=== PATIENT | male | born 1970 | race Caucasian/White ===

== ENCOUNTER 2019-06-10 19:40 | Emergency (ER) | payer MEDICARE, OTHER ==
[~2019-06-10] VITALS: Ht 172.7 cm; Wt 68.0 kg
[2019-06-10 19:47] VITALS: BP 125/74
--- NOTE | 2019-06-10 19:47 | NUR ---
Pt placed in pysch room with safety sweeper tool being performed to identify all things to be removed from room. RN present to triage.
--- NOTE | 2019-06-10 19:55 | ED Psychosocial ---
General Stated Complaint: SUICIDAL, HEARING VOICES Source: patient, RN notes reviewed Exam Limitations: no limitations History of Present Illness Date Seen by Provider: Jun 10, 2019 Time Seen by Provider: 19:54 Past Hcbjuqc-Nskrjq-Fyxnzh Hx Patient Social History Recent Foreign Travel: No Contact w/Someone Who Travel: No Physical Exam Capillary Refill : Height, Weight, BMI Height: '" Weight: lbs. oz. kg; BMI Method: Departure Departure-Patient Inst. Referrals: NO,LOCAL PHYSICIAN (PCP) Primary Care Physician GAUDENCIO CHOU DO Jun 10, 2019 19:54
[2019-06-10 20:14] LABS: BILIRUBIN,URINE NEGATIVE (NEGATIVE); CLARITY,URINE CLEAR; COLOR,URINE YELLOW; GLUCOSE, URINE (UA) NEGATIVE (NEGATIVE); KETONES,URINE NEGATIVE (NEGATIVE); LEUKOCYTE ESTERASE ,URINE NEGATIVE (NEGATIVE); NITRITE,URINE NEGATIVE (NEGATIVE); PROTEIN,URINE NEGATIVE (NEGATIVE); SQUAMOUS EPITHELIAL CELL,UR RARE /HPF; UROBILINOGEN,URINE 0.2 MG/DL (NORMAL)
--- NOTE | 2019-06-10 20:14 | NUR ---
Pt's personal belongings removed from all pockets by patient then pt's clothing removed and gown placed on pt.
[2019-06-10 20:26] LABS: BASOPHILS % (AUTO) 0 % (0-10); EOSINOPHILS % (AUTO) 6 % (0-10); HEMATOCRIT 41 % (40-54); HEMOGLOBIN 13.6 G/DL (13.3-17.7); LYMPHOCYTES % (AUTO) 24 % (12-44); MEAN CORPUSCULAR HEMOGLOBIN 29 PG (25-34); MEAN CORPUSCULAR HGB CONC 33 G/DL (32-36); MEAN CORPUSCULAR VOLUME 88 FL (80-99); MEAN PLATELET VOLUME 10.3 FL (7.4-10.4); MONOCYTES % (AUTO) 7 % (0-12); NEUTROPHILS # (AUTO) 4.4 X 10^3 (1.8-7.8); NEUTROPHILS % (AUTO) 63 % (42-75); PLATELET COUNT 258 10^3/uL (130-400); RED CELL DISTRIBUTION WIDTH 15.7 % (10.0-14.5)
[2019-06-10 20:27] LABS: EOSINOPHILS # (AUTO) 0.4 10^3/uL (0.0-0.3); LYMPHOCYTES # (AUTO) 1.7 X 10^3 (1.0-4.0); MONOCYTES # (AUTO) 0.5 X 10^3 (0.0-1.0)
[2019-06-10 20:29] LABS: AMPHETAMINE SCREEN, URINE POSITIVE (NEGATIVE); BENZODIAZEPINES SCREEN URINE NEGATIVE (NEGATIVE); CANNABINOID SCREEN, URINE POSITIVE (NEGATIVE); COCAINE SCREEN URINE NEGATIVE (NEGATIVE); METHAMPHETAMINE SCREEN URINE S POSITIVE (NEGATIVE)
[2019-06-10 20:30] LABS: BARBITURATE SCREEN URINE NEGATIVE (NEGATIVE); METHADONE STAT NEGATIVE (NEGATIVE); OPIATE SCREEN URINE NEGATIVE (NEGATIVE); OXYCODONE STAT NEGATIVE (NEGATIVE); PROPOXYPHENE STAT NEGATIVE (NEGATIVE); TRICYCLIC ANTIDEPRESSANTS SCRE NEGATIVE (NEGATIVE)
[2019-06-10 20:46] LABS: SODIUM 137 MMOL/L (135-145)
[2019-06-10 20:47] LABS: ACETAMINOPHEN < 10 UG/ML (10-30); ALANINE AMINOTRANSFERASE 179 U/L (0-55); ALBUMIN 3.9 GM/DL (3.2-4.5); ALKALINE PHOSPHATASE 111 U/L (40-136); BILIRUBIN,TOTAL 0.4 MG/DL (0.1-1.0); BUN/CREATININE RATIO 16; CARBON DIOXIDE 22 MMOL/L (21-32); CHLORIDE 98 MMOL/L (98-107); CREATININE SERUM 0.69 MG/DL (0.60-1.30); GFR ESTIMATED > 60; GLUCOSE 92 MG/DL (70-105); MAGNESIUM 1.6 MG/DL (1.8-2.4); POTASSIUM 3.4 MMOL/L (3.6-5.0); SALICYLATE < 5.0 MG/DL (5.0-20.0)
--- NOTE | 2019-06-10 20:55 | NUR ---
Pt is medically cleared per Dr Mahoney and patient may be screened per [facility].
--- NOTE | 2019-06-10 21:02 | NUR ---
[facility] with have a screener return call to this RN.
--- NOTE | 2019-06-10 21:14 | NUR ---
Cyndi @ [facility] returned call and we are joining via Laptop with secure code to start pt screening.
--- NOTE | 2019-06-10 21:21 | NUR ---
Laptop computer provided to pt and purpose of this telecom screening discussed.
--- NOTE | 2019-06-10 21:55 | NUR ---
Sonam springer in [facility] - 06/11/19 at 0632 by CKOPPA Pt medically cleared per Dr Mahoney, call to after hour [facility] to request screening.
--- NOTE | 2019-06-10 22:30 | NUR ---
Pt left AMA with Dr de la garza. Pt refused to sign the AMA form. Pt's Mental Health contract has not arrived on fax yet from [facility].
--- NOTE | 2019-06-10 22:56 | NUR ---
Notified the [facility] of pt departing before his contract arrived. Pt left AMA with aware. Pt refused to sign the AMA stating, "No, no that is what the Yefri Mancia tried to get me to sign?"
--- NOTE | 2019-06-11 05:15 | NUR ---
Receiving copy of Mental Health screening exam from [facility].
== END 2019-06-10 22:30 | disposition left against medical advice (07) ==
LOC: ER FS 19:41
DX: R45.851 Suicidal ideations (principal); R44.3 Hallucinations, unspecified
CPT/HCPCS: 36415; 80053; 80306; 80320; 80329; 81000; 83735; 85025; 93005

== ENCOUNTER 2019-06-11 18:54 | Emergency (ER) | payer MEDICARE ==
[~2019-06-11] VITALS: Ht 175.3 cm; Wt 59.0 kg
--- OUTSIDE RECORDS SUMMARY | 2019-06-11 18:59 | XMS REPORT | Referral Summary ---
Author Author [facility] Organization [facility] Address Unknown Phone Unavailable Care Team Providers Care Street Light Cleaner Name Role Phone [facility] PCP Unavailable Encounter VC THONY [id number] Date(s): 06/02/19 - 06/02/19 [facility] [address] [place] [address] Encounter Diagnosis Methamphetamine intoxication (Discharge Diagnosis) - 06/02/19 Tachycardia (Discharge Diagnosis) - 06/02/19 Methamphetamine intoxication (Discharge Diagnosis) - 06/02/19 Methamphetamine abuse (Discharge Diagnosis) - 06/02/19 Methamphetamine abuse (Discharge Diagnosis) - 06/02/19 Discharge Disposition: 01-Home or Self Care Attending Physician: Landon Gonzalez MD Admitting Physician: Landon Gonzalez MD Vital Signs Most recent to 1 oldest [Reference Range]: Temperature Oral 36.8 degC [35.8-37.3 degC] (06/02/19 2:40 AM) Peripheral Pulse 119 bpm Rate [60-100 bpm] *HI* (06/02/19 2:40 AM) Respiratory Rate 20 br/min [14-20 br/min] (06/02/19 2:40 AM) Blood Pressure 117/76 mmHg [90-140/60-90 mmHg] (06/02/19 2:40 AM) SpO2 97 % (06/02/19 2:40 AM) Problem List Condition Effective Dates Status Health Status Informant Acute Active pain(Confirmed) Anxiety(Confirmed) Active patient At risk for Active falls(Confirmed)1 At risk of pressure Active sore(Confirmed) Beta-hemolytic Active Streptococcus, group A(Confirmed)2 Impaired skin Active integrity(Confirmed) 3 Methamphetamine Active patient use(Confirmed) Schizophrenia(Confir Active med) Tobacco Active patient user(Confirmed) 1This problem was added by Discern Expert. 2Strep Grp A in Drainage from Arm R collected 05/03/19 11:45:00 CDT 3Problem added automatically by system based on initiation of Impaired Skin Integrity Plan of Care Allergies, Adverse Reactions, Alerts No Known Allergies Medications busPIRone Oral, BID, 0 Refill(s) Start Date: 06/02/19 Status: Ordered hydrOXYzine hydrochloride 25 mg oral tablet 25 mg 1 tabs, Oral, TID, as needed for anxiety, # 40 tabs, 0 Refill(s) Start Date: 05/02/19 Status: Ordered ibuprofen 200 mg oral capsule 800 mg 4 caps, Oral, BID, as needed for pain, 0 Refill(s) Start Date: 04/10/19 Status: Ordered Lexapro 10 mg oral tablet 10 mg 1 tabs, Oral, Daily, # 30 tabs, 0 Refill(s), [facility], 1 tabs Oral Daily Start Date: 04/15/19 Status: Ordered OLANZapine 10 mg oral tablet 10 mg 1 tabs, Oral, BID, # 30 tabs, 0 Refill(s) Start Date: 05/02/19 Status: Ordered traZODone 50 mg oral tablet 50 mg 1 tabs, Oral, Bedtime (once a day), # 30 tabs, 0 Refill(s), Pharmacy: [facility] [id number], 1 tabs Oral Bedtime (once a day) Start Date: 04/15/19 Status: Ordered Results Most recent to 1 oldest [Reference Range]: U Amphetamine Scrn Positive *ABN* (06/02/19 3:36 AM) U Benzodiazepine Negative Scrn (06/02/19 3:36 AM) U PCP Scrn Negative (06/02/19 3:36 AM) U Cocaine Scrn Negative (06/02/19 3:36 AM) U Cannab Scrn Negative (06/02/19 3:36 AM) U Barbiturate Scrn - 1 (06/02/19 3:36 AM) U Opiate Scrn Negative (06/02/19 3:36 AM) Tricyclics Not Detected 2 (06/02/19 3:36 AM) Methadone Lvl Negative (06/02/19 3:36 AM) 1Result Comment: Due to a shortage of Barbiturate reagent supply, we cannot perform this component of the UDS. When clinically necessary, please send a downtime requisition requesting the Barbiturate by an alternate method. 2Result Comment: Cut-off concentrations: Amphetamines: 1000 ng/mL Cocaine: 300 ng/mL Cannabinoid: 50 ng/mL Opiate: 300 ng/mL Phencyclidine (PCP): 25 ng/mL Benzodiazepine: 200 ng/mL Barbiturate: 200 ng/mL Methadone: 300 ng/mL Tricyclic: 300 ng/mL The urine drug screen assays are qualitative screens. A more specific GC/MS method must be performed to obtain a confirmed analytical result. Unconfirmed screening results must not be used for non-medical purposes(e.g. employment or legal testing) Immunizations Not Given Vaccine Date Status Refusal Reason influenza virus vaccine, inactivated 10/17/18 Not Given Patient Refuses Procedures Procedure Date Related Diagnosis Body Site Status Appendectomy Completed Procedure on ankle1 Completed 1left Social History Social History Type Response Smoking Status 5-9 cigarettes (between 1/4 to 1/2 pack)/day in last 30 days entered on: 10/17/18 Assessment and Plan No data available for this section
--- OUTSIDE RECORDS SUMMARY | 2019-06-11 18:59 | XMS REPORT | Referral Summary ---
Author Author [facility] Organization [facility] Address Unknown Phone Unavailable Care Team Providers Care Core Driller Helper Name Role Phone [facility] PCP Unavailable Encounter VC THONY [id number] Date(s): 06/07/19 - 06/07/19 [facility] [address] [place] [address]- [phone] Encounter Diagnosis Methamphetamine abuse (Discharge Diagnosis) - 06/07/19 Depression (Discharge Diagnosis) - 06/07/19 Discharge Disposition: 01-Home or Self Care Attending Physician: Erick Spencer DO Admitting Physician: Erick Spencer DO Vital Signs Most recent to 1 oldest [Reference Range]: Temperature Tympanic 37.3 degC [35.8-38.1 degC] (06/07/19 8:24 AM) Peripheral Pulse 139 bpm Rate [60-100 bpm] *HI* (06/07/19 8:24 AM) Heart Rate Monitored 99 bpm [60-100 bpm] (06/07/19 2:30 PM) Respiratory Rate 46 br/min [14-20 br/min] *HI* (06/07/19 2:30 PM) Blood Pressure 134/91 mmHg [90-140/60-90 mmHg] (06/07/19 10:00 AM) Mean Arterial 109 mmHg Pressure, Cuff (06/07/19 10:00 AM) SpO2 98 % (06/07/19 2:30 PM) Problem List Condition Effective Dates Status Health Status Informant Acute Active pain(Confirmed) Anxiety(Confirmed) Active patient At risk for Active falls(Confirmed)1 At risk of pressure Active sore(Confirmed) Beta-hemolytic Active Streptococcus, group A(Confirmed)2 Impaired skin Active integrity(Confirmed) 3 Methamphetamine Active patient use(Confirmed) Schizophrenia(Confir Active med) Tobacco Active patient user(Confirmed) 1This problem was added by Discern Expert. 2Strep Grp A in Drainage from Arm R collected 06/28/19 11:45:00 CDT 3Problem added automatically by system [...] Daily, # 30 tabs, 0 Refill(s), Pharmacy: [facility] [address], 1 tabs Oral Daily Start Date: 04/15/19 Status: Ordered OLANZapine 10 mg oral tablet 10 mg 1 tabs, Oral, BID, # 30 tabs, 0 Refill(s) Start Date: 05/02/19 Status: Ordered traZODone 50 mg oral tablet 50 mg 1 tabs, Oral, Bedtime (once a day), # 30 tabs, 0 Refill(s), Pharmacy: [facility] [address], 1 tabs Oral Bedtime (once a day) Start Date: 04/15/19 Status: Ordered Results Most recent to 1 oldest [Reference Range]: WBC [4.8-10.8 12.4 10*3/uL 10*3/uL] *HI* (06/07/19 8:21 AM) RBC [4.60-6.20] 4.64 (06/07/19 8:21 AM) BUN [4-20 mg/dL] 14 mg/dL (06/07/19 8:21 AM) Total CK [49-397 514 U/L U/L] *HI* (06/07/19 8:21 AM) U Amphetamine Scrn Positive 1 *ABN* (06/07/19 9:00 AM) UA Color Yellow (06/07/19 9:00 AM) UA WBC [0-4] 0-2 (06/07/19 9:00 AM) Type Clean Catch (06/07/19 9:00 AM) Troponin [<0.06 <0.05 ng/mL ng/mL] (06/07/19 8:21 AM) Glucose Lvl [70-100 141 mg/dL mg/dL] *HI* (06/07/19 8:21 AM) Potassium Lvl 3.9 mEq/L [3.6-5.1 mEq/L] (06/07/19 8:21 AM) U Benzodiazepine Negative Scrn (06/07/19 9:00 AM) MCV [82.0-99.0 fL] 87.3 fL (06/07/19 8:21 AM) UA Urobilinogen Negative [<1.0] (06/07/19 9:00 AM) UA Hyal Cast [0-3] 1-3 (06/07/19 9:00 AM) UA Bili [Negative] Negative (06/07/19 9:00 AM) UA Ketones Negative [Negative] (06/07/19 9:00 AM) AST [15-41 U/L] 121 U/L *HI* (06/07/19 8:21 AM) ALT [17-63 U/L] 159 U/L *HI* (06/07/19 8:21 AM) MCHC [32.0-36.0 32.8 gm/dL gm/dL] (06/07/19 8:21 AM) Sodium Lvl [136-144 141 mEq/L mEq/L] (06/07/19 8:21 AM) UA RBC [0-2] 0-2 (06/07/19 9:00 AM) UA Leuk Est Negative [Negative] (06/07/19 9:00 AM) U PCP Scrn Negative (06/07/19 9:00 AM) UA Nitrite Negative [Negative] (06/07/19 9:00 AM) UA Glucose Negative [Negative] (06/07/19 9:00 AM) Hct [42.0-52.0 %] 40.5 % *LOW* (06/07/19 8:21 AM) UA Bacteria [None None Seen Seen-Rare] (06/07/19 9:00 AM) U Cocaine Scrn Negative (06/07/19 9:00 AM) Calcium Lvl 9.7 mg/dL [8.6-10.0 mg/dL] (06/07/19 8:21 AM) Albumin Lvl [3.5-4.8 4.5 gm/dL gm/dL] (06/07/19 8:21 AM) Total Protein 7.6 gm/dL [6.1-7.9 gm/dL] (06/07/19 8:21 AM) UA Protein Pos 1+ [Negative] *ABN* (06/07/19 9:00 AM) MCH [27.0-32.0 pg] 28.7 pg (06/07/19 8:21 AM) U Cannab Scrn Positive *ABN* (06/07/19 9:00 AM) Bili Total [0.2-1.2 0.8 mg/dL 2 mg/dL] (06/07/19 8: AM) Hgb [14.0-18.0 13.3 gm/dL gm/dL] *LOW* (06/07/19 8: AM) Alk Phos [26-104 90 U/L U/L] (06/07/19 8:21 AM) UA Blood [Negative] Negative (06/07/19 9:00 AM) MPV [9.4-12.3 fL] 10.8 fL (06/07/19 8:21 AM) UA Mucous Present (06/07/19 9:00 AM) UA Spec Grav 1.020 [1.003-1.030] (06/07/19 9:00 AM) Platelet [150-400 236 10*3/uL 10*3/uL] (06/07/19 8:21 AM) Chloride [99-109 105 mEq/L mEq/L] (06/07/19 8:21 AM) CO2 [22-32 mEq/L] 20 mEq/L *LOW* (06/07/19 8: AM) AGAP [3-20 mEq/L] 16 mEq/L (06/07/19 8:21 AM) U Barbiturate Scrn - 3 (06/07/19 9:00 AM) RDW [11.5-14.5 %] 15.8 % *HI* (06/07/19 8:21 AM) UA pH [5.0-8.0] 5.0 (06/07/19 9:00 AM) U Opiate Scrn Negative (06/07/19 9:00 AM) UA Appear Clear (06/07/19 9:00 AM) eGFR [>60 mL/min] >60 mL/min 4 (06/07/19 8:21 AM) Globulin [1.9-4.3 3.1 gm/dL gm/dL] (06/07/19 8:21 AM) Epithelial Cells None Seen [0-5] (06/07/19 9:00 AM) Tricyclics Negative 5 (06/07/19 9:00 AM) Creatinine Lvl 1.14 mg/dL [0.64-1.27 mg/dL] (06/07/19 8:21 AM) Sodium Venous 141 mEq/L [136-144 mEq/L] (06/07/19 8:30 AM) Potassium Venous 3.8 mEq/L 6 [3.6-5.1 mEq/L] (06/07/19 8:30 AM) Calcium Ionized 1.16 mmol/L Venous [1.19-1.41 *LOW* mmol/L] (06/07/19 8:30 AM) Total CO2 Venous 22 mEq/L [25-29 mEq/L] *LOW* (06/07/19 8:30 AM) HGB Venous NPT 15.0 gm/dL [14.0-18.0 gm/dL] (06/07/19 8:30 AM) HCT Venous 44.0 % [42.0-52.0 %] (06/07/19 8:30 AM) Glucose Venous 146 mg/dL [70-100 mg/dL] *HI* (06/07/19 8:30 AM) BUN Venous [4-20] 16 (06/07/19 8:30 AM) Creatinine Venous 1.0 mg/dL [0.7-1.2 mg/dL] (06/07/19 8:30 AM) Venous CL [99-109 106 mEq/L mEq/L] (06/07/19 8:30 AM) Anion Gap, Alverto [3-20 13 mEq/L mEq/L] (06/07/19 8:30 AM) Methadone Lvl Negative (06/07/19 9:00 AM) 1Result Comment: Samples with a Methylenedioxyamphetamine (MDA) concentration of 2,500 ng/mL may generate a negative result. However, samples with a Phenylephrine concentration of 500,000 ng/mL may generate a positive result. 2Result Comment: Naproxen, specifically the metabolite O-desmethylnaproxen, may cause spurious elevation in Total Bilirubin levels. 3Result Comment: Due to a shortage of Barbiturate reagent supply, we cannot perform this component of the UDS. When clinically necessary, please send a downtime requisition requesting the Barbiturate by an alternate method. 4Result Comment: Multiply eGFR results by 1.21 for race. 5Result Comment: Cut-off concentrations: Amphetamines: 1000 ng/mL Cocaine: [...] for non-medical purposes(e.g. employment or legal testing) 6Result Comment: This test was performed on a whole blood specimen. The presence or absence of hemolysis cannot be assessed. Hemolysis can falsely elevate potassium levels. Immunizations Not Given Vaccine Date Status Refusal [...]
--- OUTSIDE RECORDS SUMMARY | 2019-06-11 18:59 | XMS REPORT | Referral Summary ---
Author Author [facility] Organization [facility] Address Unknown Phone Unavailable Care Team Providers Care Mimeographer Name Role Phone [facility] PCP Unavailable Encounter VC BHANDARI [id number] Date(s): 05/14/19 - 05/14/19 [facility] [address] [place] [address] Discharge Disposition: Vital Signs Most recent to 1 oldest [Reference Range]: Temperature Oral 36.8 degC [35.8-37.3 degC] (05/14/19 6:39 PM) Peripheral Pulse 77 bpm Rate [60-100 bpm] (05/14/19 6:39 PM) Respiratory Rate 18 br/min [14-20 br/min] (05/14/19 6:39 PM) Blood Pressure 119/78 mmHg [90-140/60-90 mmHg] (05/14/19 6:39 PM) SpO2 96 % (05/14/19 6:39 PM) Problem List Condition Effective Dates Status [...] Adverse Reactions, Alerts No Known Allergies Medications amoxicillin 500 mg oral capsule 500 mg 1 caps, Oral, TID, X 10 days, # 30 caps, 0 Refill(s), [facility] [address], 1 caps Oral TID,x10 days Start Date: 05/05/19 Stop Date: 05/15/19 Status: Ordered hydrOXYzine hydrochloride 25 mg oral [...] Daily, # 30 tabs, 0 Refill(s), [facility], 1 tabs Oral Daily Start Date: 04/15/19 Status: Ordered OLANZapine 10 mg oral tablet 10 mg 1 tabs, Oral, BID, # 30 tabs, 0 Refill(s) Start Date: 05/02/19 Status: Ordered traZODone 50 mg oral tablet 50 mg 1 tabs, Oral, Bedtime (once a day), # 30 tabs, 0 Refill(s), Pharmacy: [facility] [place] [facility] [id number], 1 tabs Oral Bedtime (once a day) Start Date: 04/15/19 Status: Ordered Results No data available for this section Immunizations Not Given Vaccine Date Status Refusal [...]
--- OUTSIDE RECORDS SUMMARY | 2019-06-11 18:59 | XMS REPORT | Referral Summary ---
Author Author [facility] Organization [facility] Address Unknown Phone Unavailable Care Team Providers Care Jack Machine Operator Name Role Phone [facility] PCP Unavailable Encounter VC BHANDARI [id number] Date(s): 06/02/19 - 06/02/19 [facility] [address] [place] [address]- Discharge Disposition: Attending Physician: Erick Vallejo MD Admitting Physician: Erick Vallejo MD Vital Signs Most recent to 1 oldest [Reference Range]: Temperature Temporal 36.7 degC Artery [36.3-37.8 (06/02/19 8:33 AM) degC] Peripheral Pulse 126 bpm Rate [60-100 bpm] *HI* (06/02/19 8:33 AM) Heart Rate Monitored 121 bpm [60-100 bpm] *HI* (06/02/19 9:45 AM) Respiratory Rate 20 br/min [14-20 br/min] (06/02/19 9:45 AM) Blood Pressure 148/96 mmHg [90-140/60-90 mmHg] *HI* (06/02/19 9:45 AM) SpO2 98 % (06/02/19 9:45 AM) Problem List Condition Effective Dates Status [...] Daily, # 30 tabs, 0 Refill(s), Pharmacy: [facility] [address], 1 tabs Oral Daily Start Date: 04/15/19 Status: Ordered OLANZapine 10 mg oral tablet 10 mg 1 tabs, Oral, BID, # 30 tabs, 0 Refill(s) Start Date: 05/02/19 Status: Ordered traZODone 50 mg oral tablet 50 mg 1 tabs, Oral, Bedtime (once a day), # 30 tabs, 0 Refill(s), Pharmacy: [facility] [address], 1 tabs Oral Bedtime (once a day) Start Date: 04/15/19 Status: Ordered Results Most recent to 1 oldest [Reference Range]: WBC [4.8-10.8 10.4 10*3/uL 10*3/uL] (06/02/19 9:20 AM) RBC [4.60-6.20] 4.75 (06/02/19 9:20 AM) BUN [4-20 mg/dL] 23 mg/dL *HI* (06/02/19 9:20 AM) Total CK [49-397 956 U/L U/L] *HI* (06/02/19 9:20 AM) U Amphetamine Scrn Positive *ABN* (06/02/19 8:45 AM) UA Color Yellow (06/02/19 8:45 AM) UA WBC [0-4] 2-5 (06/02/19 8:45 AM) Type Cl Catch (06/02/19 8:45 AM) Glucose Lvl [70-100 93 mg/dL mg/dL] (06/02/19 9:20 AM) Potassium Lvl 4.0 mEq/L [3.6-5.1 mEq/L] (06/02/19 9:20 AM) U Benzodiazepine Negative Scrn (06/02/19 8:45 AM) MCV [82.0-99.0 fL] 87.6 fL (06/02/19 9:20 AM) UA Urobilinogen Negative [<1.0] (06/02/19 8:45 AM) UA Bili [Negative] Negative (06/02/19 8:45 AM) UA Ketones Negative [Negative] (06/02/19 8:45 AM) AST [15-41 U/L] 95 U/L *HI* (06/02/19 9:20 AM) ALT [17-63 U/L] 119 U/L *HI* (06/02/19 9:20 AM) MCHC [32.0-36.0 33.4 gm/dL gm/dL] (06/02/19 9:20 AM) Sodium Lvl [136-144 141 mEq/L mEq/L] (06/02/19 9:20 AM) UA RBC [0-2] 2-5 (06/02/19 8:45 AM) UA Leuk Est Negative [Negative] (06/02/19 8:45 AM) U PCP Scrn Negative (06/02/19 8:45 AM) UA Nitrite Negative [Negative] (06/02/19 8:45 AM) UA Glucose Negative [Negative] (06/02/19 8:45 AM) Hct [42.0-52.0 %] 41.6 % *LOW* (06/02/19 9:20 AM) UA Bacteria [None Rare Seen-Rare] (06/02/19 8:45 AM) U Cocaine Scrn Negative (06/02/19 8:45 AM) Calcium Lvl 9.5 mg/dL [8.6-10.0 mg/dL] (06/02/19 9:20 AM) Albumin Lvl [3.5-4.8 4.6 gm/dL gm/dL] (06/02/19 9:20 AM) Total Protein 8.2 gm/dL [6.1-7.9 gm/dL] *HI* (06/02/19 9:20 AM) UA Protein Pos 1+ [Negative] *ABN* (06/02/19 8:45 AM) MCH [27.0-32.0 pg] 29.3 pg (06/02/19 9:20 AM) U Cannab Scrn Negative (06/02/19 8:45 AM) Bili Total [0.2-1.2 1.3 mg/dL 1 mg/dL] *HI* (06/02/19 9:20 AM) Hgb [14.0-18.0 13.9 gm/dL gm/dL] *LOW* (06/02/19 9:20 AM) Alk Phos [26-104 102 U/L U/L] (06/02/19 9:20 AM) UA Blood [Negative] Pos 1+ *ABN* (06/02/19 8:45 AM) MPV [9.4-12.3 fL] 10.8 fL (06/02/19 9:20 AM) UA Mucous Present (06/02/19 8:45 AM) UA Spec Grav 1.015 [1.003-1.030] (06/02/19 8:45 AM) Platelet [150-400 256 10*3/uL 10*3/uL] (06/02/19 9:20 AM) Chloride [99-109 102 mEq/L mEq/L] (06/02/19 9:20 AM) CO2 [22-32 mEq/L] 20 mEq/L *LOW* (06/02/19 9:20 AM) AGAP [3-20 mEq/L] 19 mEq/L (06/02/19 9:20 AM) U Barbiturate Scrn - 2 (06/02/19 8:45 AM) RDW [11.5-14.5 %] 15.4 % *HI* (06/02/19 9:20 AM) UA pH [5.0-8.0] 5.0 (06/02/19 8:45 AM) U Opiate Scrn Negative (06/02/19 8:45 AM) UA Appear Sl Cloudy (06/02/19 8:45 AM) eGFR [>60 mL/min] 51 mL/min 3 *ABN* (06/02/19 9:20 AM) Globulin [1.9-4.3 3.6 gm/dL gm/dL] (06/02/19 9:20 AM) Epithelial Cells 0-2 [0-5] (06/02/19 8:45 AM) Tricyclics Negative 4 (06/02/19 8:45 AM) TSH with Reflex Free 1.34 mcIU/mL T4 [0.35-5.50 (06/02/19 9:20 AM) mcIU/mL] Creatinine Lvl 1.48 mg/dL [0.64-1.27 mg/dL] *HI* (06/02/19 9:20 AM) Methadone Lvl Negative (06/02/19 8:45 AM) 1Result Comment: Naproxen, specifically the metabolite O-desmethylnaproxen, may cause spurious elevation in Total Bilirubin levels. 2Result Comment: Due to a shortage of Barbiturate reagent supply, we cannot perform this component of the UDS. When clinically necessary, please send a downtime requisition requesting the Barbiturate by an alternate method. 3Result Comment: Multiply eGFR results by 1.21 for race. 4Result Comment: Cut-off concentrations: Amphetamines: 1000 ng/mL Cocaine: [...]
--- OUTSIDE RECORDS SUMMARY | 2019-06-11 19:00 | XMS REPORT ---
Author Author Inessa Mohan Organization [facility] Address [address] [place] [phone] Care Team Providers Care Oracle Pl Sql Developer Name Role Phone Inessa Mohan Unavailable PROBLEMS Type Condition ICD9-CM Code [id number] Code Onset Dates Condition Status SNOMED Code Problem Other chronic pain G89.29 Active 83722028 Problem Gastroesophageal reflux disease, esophagitis presence not specified K21.9 Active 558506032 ALLERGIES No Information ENCOUNTERS Encounter Location Date Diagnosis [facility] [address] [address] Feb, [facility] [address] [place] [phone] Jan, [facility] [address] [place] [phone] Jan, Other chronic pain G89.29 ; Pain in left ankle and joints of left foot M25.572 and Gastroesophageal reflux disease, esophagitis presence not specified K21.9 IMMUNIZATIONS No Known Immunizations SOCIAL HISTORY Never Assessed REASON FOR VISIT no show PLAN OF CARE VITAL SIGNS MEDICATIONS Unknown Medications RESULTS No Results PROCEDURES No Known procedures INSTRUCTIONS MEDICATIONS ADMINISTERED No Known Medications MEDICAL (GENERAL) HISTORY Type Description Date Medical History Anxiety disorder, unspecified Medical History Major depressive disorder, single episode, unspecified Medical History Arthritis Medical History Gastroesophageal reflux disease, esophagitis presence not specified Surgical History Left ankle 12/25/2009 Hospitalization History same
--- OUTSIDE RECORDS SUMMARY | 2019-06-11 19:00 | XMS REPORT ---
Author Author Inessa Mohan Organization [facility] Address [address] [place] [phone] Care Team Providers Care Autistic Teacher Name Role Phone Marques Inessa Unavailable PROBLEMS Type Condition ICD9-CM Code XBL59-FQ Code Onset Dates Condition Status SNOMED Code Problem Other chronic pain G89.29 Active 98102504 Problem Gastroesophageal reflux disease, esophagitis presence not specified K21.9 Active 403035327 ALLERGIES No Information ENCOUNTERS Encounter Location Date Diagnosis [facility] [address] [address] Feb, [facility] [address] [place] [phone] Jan, [facility] [address] [place] [phone] Jan, Other chronic pain G89.29 ; Pain in left ankle and joints of left foot M25.572 and Gastroesophageal reflux disease, esophagitis presence not specified K21.9 IMMUNIZATIONS No Known Immunizations SOCIAL HISTORY Never Assessed REASON FOR VISIT med PLAN OF CARE VITAL SIGNS MEDICATIONS Medication Instructions Dosage Frequency Start Date End Date Duration Status Diclofenac Sodium 50 MG Orally Three times a day 1 tablet with food or milk 8h Jan, Feb, 30 day(s) Active RESULTS No Results PROCEDURES No Known procedures INSTRUCTIONS MEDICATIONS ADMINISTERED No Known Medications MEDICAL (GENERAL) HISTORY Type Description Date Medical History Anxiety disorder, unspecified Medical History Major depressive disorder, single episode, unspecified Medical History Arthritis Medical History Gastroesophageal reflux disease, esophagitis presence not specified Surgical History Left ankle 12/25/2009 Hospitalization History same
--- OUTSIDE RECORDS SUMMARY | 2019-06-11 19:00 | XMS REPORT ---
Author Author [facility] Organization Unknown Address Unknown Phone Unavailable Care Team Providers Care Non Garment Sewing Machine Operator Name Role Phone UNASSIGNED DOCTOR , DOCTOR PP Reason For Visit Chief Complaint LT ANKLE PAIN Social History Functional Status Vital Signs Results Problems Encounter Diagnosis No relevant problems exist. Encounters Encounter Diagnosis No relevant problems exist. Plan of Care Procedures No relevant procedures performed. Immunizations No immunizations administered or ordered. Hospital Course Hospital Discharge Instructions Allergies, Adverse Reactions, Alerts * Latex Allergy has not been assessed. * IV Contrast Allergy has not been assessed. Medication Medication reconciliation has not been performed.
--- OUTSIDE RECORDS SUMMARY | 2019-06-11 19:00 | XMS REPORT | Referral Summary ---
Author Author [facility] Organization [facility] Address Unknown Phone Unavailable Care Team Providers Care Sports Therapist Name Role Phone [facility] PCP Unavailable Encounter VC BHANDARI [id number] Date(s): 05/02/19 - 05/05/19 [facility] [address] [place] [address] [phone] Discharge Disposition: 01-Home or Self Care Attending Physician: Lucrecia Stewart MD Admitting Physician: Lucrecia Stewart MD Vital Signs Most recent to 1 oldest [Reference Range]: Temperature Oral 36.8 degC [35.8-37.3 degC] (05/05/19 11:36 AM) Peripheral Pulse 82 bpm Rate [60-100 bpm] (05/05/19 11:36 AM) Heart Rate Monitored 90 bpm [60-100 bpm] (05/04/19 4:00 AM) Respiratory Rate 18 br/min [14-20 br/min] (05/05/19 11:36 AM) Blood Pressure 120/79 mmHg [90-140/60-90 mmHg] (05/05/19 11:36 AM) Mean Arterial 82 mmHg Pressure, Cuff (05/03/19 1:00 AM) SpO2 94 % (05/05/19 11:36 AM) Problem List Condition Effective Dates Status [...] days, # 30 caps, 0 Refill(s), Pharmacy: [facility] [id number], 1 caps Oral TID,x10 days Start Date: [...] Daily, # 30 tabs, 0 Refill(s), Pharmacy: [id number], 1 tabs Oral Daily Start Date: 04/15/19 Status: Ordered OLANZapine 10 mg oral tablet 10 mg 1 tabs, Oral, BID, # 30 tabs, 0 Refill(s) Start Date: 05/02/19 Status: Ordered traZODone 50 mg oral tablet 50 mg 1 tabs, Oral, Bedtime (once a day), # 30 tabs, 0 Refill(s), Pharmacy: [facility] [id number], 1 tabs Oral Bedtime (once a day) Start Date: 04/15/19 Status: Ordered Results Most recent to 1 oldest [Reference Range]: Lactic Acid-POC 1.5 mEq/L [0.5-2.0 mEq/L] (05/02/19 7:37 PM) WBC [4.8-10.8 9.6 10*3/uL 10*3/uL] (05/05/19 7:31 AM) RBC [4.60-6.20] 4.85 (05/05/19 7:31 AM) BUN [4-20 mg/dL] 10 mg/dL (05/05/19 7:31 AM) Glucose Lvl [70-100 119 mg/dL mg/dL] *HI* (05/05/19 7:31 AM) Potassium Lvl 4.5 mEq/L [3.6-5.1 mEq/L] (05/05/19 7:31 AM) Baso Absolute 0.01 [0.00-0.20] (05/03/19 6:08 AM) MCV [82.0-99.0 fL] 88.0 fL (05/05/19 7:31 AM) AST [15-41 U/L] 32 U/L (05/02/19 6:04 PM) ALT [17-63 U/L] 47 U/L (05/02/19 6:04 PM) MCHC [32.0-36.0 32.8 gm/dL gm/dL] (05/05/19 7:31 AM) Sodium Lvl [136-144 138 mEq/L mEq/L] (05/05/19 7:31 AM) Lymph Absolute 1.82 [0.80-3.30] (05/03/19 6:08 AM) Hct [42.0-52.0 %] 42.7 % (05/05/19 7:31 AM) Calcium Lvl 9.1 mg/dL [8.6-10.0 mg/dL] (05/05/19 7:31 AM) [place]on Absolute 0.89 [0.30-1.00] (05/03/19 6:08 AM) Albumin Lvl [3.5-4.8 3.5 gm/dL gm/dL] (05/02/19 6:04 PM) Total Protein 6.9 gm/dL [6.1-7.9 gm/dL] (05/02/19 6:04 PM) Sed Rate [0-15] 21 *HI* (05/03/19 6:08 AM) MCH [27.0-32.0 pg] 28.9 pg (05/05/19 7:31 AM) Neutro Absolute 13.28 [1.90-7.00] *HI* (05/03/19 6:08 AM) Bili Total [0.2-1.2 0.8 mg/dL 1 mg/dL] (05/02/19 6:04 PM) Hgb [14.0-18.0 14.0 gm/dL gm/dL] (05/05/19 7:31 AM) Alk Phos [26-104 97 U/L U/L] (05/02/19 6:04 PM) MPV [9.4-12.3 fL] 9.7 fL (05/05/19 7:31 AM) Platelet [150-400 269 10*3/uL 10*3/uL] (05/05/19 7:31 AM) Chloride [99-109 106 mEq/L mEq/L] (05/05/19 7:31 AM) CO2 [22-32 mEq/L] 24 mEq/L (05/05/19 7:31 AM) AGAP [3-20 mEq/L] 8 mEq/L (05/05/19 7:31 AM) Eos Absolute 0.17 [0.00-0.50] (05/03/19 6:08 AM) RDW [11.5-14.5 %] 15.0 % *HI* (05/05/19 7:31 AM) Immature 0.4 % Granulocytes (05/03/19 6:08 AM) [0.0-1.0 %] Nucleated RBC 0.0 /100 WBC Automated [0 /100 (05/03/19 6:08 AM) WBC] eGFR [>60 mL/min] >60 mL/min 2 (05/05/19 7:31 AM) Globulin [1.9-4.3 3.4 gm/dL gm/dL] (05/02/19 6:04 PM) Creatinine Lvl 0.76 mg/dL [0.64-1.27 mg/dL] (05/05/19 7:31 AM) Neutrophils [51-75 82 % %] *HI* (05/03/19 6:08 AM) Lymphocytes [20-46 11 % %] *LOW* (05/03/19 6:08 AM) Eosinophils [0-4 %] 1 % (05/03/19 6:08 AM) Basophils [0-2 %] 0 % (05/03/19 6:08 AM) Monocytes [4-11 %] 6 % (05/03/19 6:08 AM) 1Result Comment: Naproxen, specifically the metabolite O-desmethylnaproxen, may cause spurious elevation in Total Bilirubin levels. 2Result Comment: Multiply eGFR results by 1.21 for race. Microbiology Reports TEST: Wound Culture and Smear STATUS: Order in Progress BODY SITE: Arm, Right SOURCE: Drainage COLLECTED DATE/TIME: 05/03/19 11:56 AM Wound Culture and Smear Streptococcus pyogenes - (Group A) moderate amount ORGANISM:Streptococcus pyogenes (Group A) TEST: Blood Culture1 STATUS: Order in Progress BODY SITE: SOURCE: Blood COLLECTED DATE/TIME: 05/02/19 7:43 PM Blood Culture No growth after 12 hours incubation. Nursing unit/client will be called if growth is detected. - TEST: Blood Culture STATUS: Order in Progress BODY SITE: SOURCE: Blood COLLECTED DATE/TIME: 05/02/19 7:25 PM Blood Culture No growth after 12 hours incubation. Nursing unit/client will be called if growth is detected. - INTERPRETIVE DATA 1Pediatric bottle ONLY received Immunizations Not Given Vaccine Date Status Refusal [...]
--- OUTSIDE RECORDS SUMMARY | 2019-06-11 19:00 | XMS REPORT | Referral Summary ---
Author Author [facility] Organization [facility] Address Unknown Phone Unavailable Care Team Providers Care Battery Technician Name Role Phone [facility] PCP Unavailable Encounter THONY [id number] Date(s): 09/21/16 - 09/21/16 [facility] [address], [place] [address] [phone] Discharge Diagnosis: Left ankle pain Discharge Diagnosis: Anxiety Discharge Disposition: 01-Home or Self Care Attending Physician: Lois Cox MD Admitting Physician: Lios Cox MD Vital Signs Most recent to 1 2 oldest [Reference Range]: Temperature Oral 36.8 degC [35.8-37.3 degC] (09/21/16 4:01 AM) Peripheral Pulse 117 bpm 1 117 bpm Rate [60-100 bpm] *HI* *HI* (09/21/16 5:24 AM) (09/21/16 5:24 AM) Heart Rate Monitored 119 bpm [60-100 bpm] *HI* (09/21/16 5:00 AM) Respiratory Rate 18 br/min 18 br/min [14-20 br/min] (09/21/16 5:24 AM) (09/21/16 5:24 AM) Blood Pressure 140/91 mmHg 140/91 mmHg [90-140/60-90 mmHg] (09/21/16 5:24 AM) (09/21/16 5:24 AM) Mean Arterial 107 mmHg Pressure, Cuff (09/21/16 5:00 AM) SpO2 99 % 99 % (09/21/16 5:24 AM) (09/21/16 5:24 AM) 1Result Comment: Dr. Cox notified. Orders to continue dismissal Problem List Condition Effective Dates Status Health Status Informant Acute Active pain(Confirmed) No Chronic Problems Active Tobacco Active patient user(Confirmed) Allergies, Adverse Reactions, Alerts No Known Allergies Medications famotidine 20 mg oral tablet 20 mg 1 tabs, Oral, Daily, 0 Refill(s) Start Date: 09/14/16 Status: Ordered Lexapro 10 mg oral tablet 10 mg 1 tabs, Oral, Daily, # 30 tabs, 0 Refill(s), Indication: depression/anxiet y Start Date: 09/14/16 Status: Ordered Results No data available for this section Immunizations No data available for this section Procedures Procedure Date Related Diagnosis Body Site Appendectomy Procedure on ankle1 1left Social History Social History Type Response Smoking Status Current every day smoker; Type: Cigarettes; Tobacco use per day: Less than Pack Assessment and Plan No data available for this section
--- OUTSIDE RECORDS SUMMARY | 2019-06-11 19:00 | XMS REPORT | Referral Summary ---
Author Author [facility] Organization [facility] Address Unknown Phone Unavailable Care Team Providers Care Site Coordinator Name Role Phone [facility] PCP Unavailable Encounter [facility] [id number] Date(s): 09/23/16 - 09/23/[address] [facility] [address] [place] [address] [phone] Discharge Diagnosis: Anxiety Discharge Disposition: 01-Home or Self Care Attending Physician: Sherwin Stubbs MD Admitting Physician: Sherwin Stubbs MD Vital Signs Most recent to 1 oldest [Reference Range]: Temperature Oral 36.9 degC [35.8-37.3 degC] (09/23/16 4:27 PM) Peripheral Pulse 90 bpm Rate [60-100 bpm] (09/23/16 4:27 PM) Respiratory Rate 20 br/min [14-20 br/min] (09/23/16 4:27 PM) Blood Pressure 161/97 mmHg [90-140/60-90 mmHg] *HI* (09/23/16 4:27 PM) SpO2 100 % (09/23/16 4:27 PM) Problem List Condition Effective Dates Status Health Status Informant Acute Active pain(Confirmed) Anxiety(Confirmed) Active patient Tobacco Active patient user(Confirmed) Allergies, Adverse Reactions, [...]
--- OUTSIDE RECORDS SUMMARY | 2019-06-11 19:00 | XMS REPORT | Referral Summary ---
Author Author [facility] Organization [facility] Address Unknown Phone Unavailable Care Team Providers Care Pickle Sorter Name Role Phone No PCP, Pt States PCP Encounter VC Date(s): 09/10/15 - 09/10/15 [facility] [address] [place] [address] Discharge Diagnosis: Ear pain, left Discharge Diagnosis: Exudative pharyngitis Discharge Diagnosis: Cough Discharge Diagnosis: Upper respiratory infection Discharge Disposition: 01-Home or Self Care Attending Physician: Alli Dutta MD Admitting Physician: Alli Dutta MD Vital Signs Most recent to 1 oldest [Reference Range]: Temperature Oral 36.2 degC [35.8-37.3 degC] (09/10/15 3:23 AM) Peripheral Pulse 81 bpm Rate [60-100 bpm] (09/10/15 3:23 AM) Respiratory Rate 20 br/min [14-20 br/min] (09/10/15 3:23 AM) Blood Pressure 128/88 mmHg [90-140/60-90 mmHg] (09/10/15 3:23 AM) SpO2 95 % (09/10/15 3:23 AM) Problem List Condition Effective Dates Status Health Status Informant No Chronic Problems Active Tobacco Active patient user(Confirmed) Allergies, Adverse Reactions, Alerts No Known Allergies Medications azithromycin 500 mg oral tablet 500 mg 1 tabs, Oral, Daily, X 5 days, # 5 tabs, 0 Refill(s) Start Date: 09/10/15 Stop Date: 09/15/15 Status: Ordered Promethazine VC with Codeine oral syrup 5 mL, Oral, q4hr, X 3 days, # 90 mL, 0 Refill(s) Start Date: 09/10/15 Stop Date: 09/13/15 Status: Ordered Results No data available for [...]
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
--- OUTSIDE RECORDS SUMMARY | 2019-06-11 19:00 | XMS REPORT | Referral Summary ---
Author Author [facility] Organization [facility] Address Unknown Phone Unavailable Care Team Providers Care Ball Fringe Machine Operator Name Role Phone [facility] PCP Unavailable Encounter [facility] [id number] Date(s): 09/25/16 - 09/25/16 [facility] [address] [place] [address] Discharge Diagnosis: Anterior chest wall pain Discharge Disposition: Attending Physician: Zina Salinas MD Admitting Physician: Zina Salinas MD Vital Signs Most recent to 1 oldest [Reference Range]: Temperature Oral 36.4 degC [35.8-37.3 degC] (09/25/16 3:02 PM) Peripheral Pulse 71 bpm Rate [60-100 bpm] (09/25/16 3:02 PM) Respiratory Rate 18 br/min [14-20 br/min] (09/25/16 3:02 PM) Blood Pressure 165/95 mmHg [90-140/60-90 mmHg] *HI* (09/25/16 3:02 PM) SpO2 99 % (09/25/16 3:02 PM) Problem List Condition Effective Dates Status [...] y Start Date: 09/14/16 Status: Ordered naproxen 250 mg oral tablet 250 mg 1 tabs, Oral, q8hr, as needed for pain, X 5 days, # 15 tabs, 0 Refill(s) Start Date: 09/25/16 Stop Date: 09/30/16 Status: Ordered Results No data available for [...]
--- OUTSIDE RECORDS SUMMARY | 2019-06-11 19:00 | XMS REPORT ---
Author Author [facility] Organization Unknown Address Unknown Phone Unavailable Care Team Providers Care Exam Proctor Name Role Phone UNASSIGNED DOCTOR , DOCTOR PP Reason For Visit Reason for Visit from 01/18/2018 12:35 PM:* Pt Stated Reason for Adm : "suicidal thoughts" Reason for Visit from 01/16/2018 2:07 PM:* Pt Stated Reason for Adm : "suicidal thoughts" Reason for Visit from 01/16/2018 12:39 PM:* Pt Stated Reason for Adm : "suicidal thoughts" Chief Complaint CRISIS,UNSPECIFIED DEPRESSIVE D/IO Social History Social History from 01/18/2018 12:35 PM:* Tobacco Use? : Current Some Day Smoker Social History from 01/16/2018 2:07 PM:* Tobacco Use? : Current Some Day Smoker Social History from 01/16/2018 12:39 PM:* Tobacco Use? : Current Some Day Smoker Functional Status Functional Status from 01/18/2018 8:28 AM:* LOC : Alert * Oriented To : Person,Place,Time,Event * Weight Bearing Status : Full * Assist Level : Independent * # Assists : Independent Functional Status from 01/17/2018 8:16 PM:* LOC : Alert * Oriented To : Person,Place,Time,Event * Weight Bearing Status : Full * Assist Level : Independent * # Assists : Independent Functional Status from 01/17/2018 11:26 AM:* LOC : Alert * Oriented To : Person,Place,Time,Event * Weight Bearing Status : Full * Assist Level : Independent * # Assists : Independent Functional Status from 01/16/2018 9:35 PM:* LOC : Alert * Oriented To : Person,Place,Time,Event * Weight Bearing Status : Full * Assist Level : Independent * # Assists : Independent Functional Status from 01/16/2018 12:39 PM:* LOC : Alert * Oriented To : Person,Place,Time * Weight Bearing Status : Full * Assist Level : Independent * # Assists : Independent Vital Signs Hospital Vital Signs from 01/18/2018 6:45 AM:* Height : 5/9 ft,in * Temperature : 98.2 F * Pulse : 71 * Respirations : 18 * BP : 130/79 Hospital Vital Signs from 01/17/2018 8:23 AM:* Weight : 69.5/ kg * Height : 5/9 ft,in Hospital Vital Signs from 01/17/2018 7:09 AM:* Weight : 69.5/ kg * Height : 5/9 ft,in * Temperature : 98.4 F * Pulse : 75 * Respirations : 20 * BP : 124/74 Hospital Vital Signs from 01/16/2018 12:39 PM:* Weight : 70.3/ kg * Height : 5/9 ft,in Hospital Vital Signs from 01/16/2018 12:03 PM:* Weight : 70.3/ kg * Height : 5/9 ft,in * Temperature : 98.8 F * Pulse : 87 * Respirations : 18 * BP : 149/91 Results Chemistry from 01/17/2018 6:17 AMGLUCOSE (FASTING) 107 MG/DL H (65-99 MG/DL) Problems Encounter Diagnosis * Chronic Pain Status:Active. Additional Problems * Anxiety Comment:Problem resolved by Soarian Workflow upon Discharge, Status:Resolved. Encounters Encounter Diagnosis * Chronic Pain Status:Active. Plan of Care Follow-up Appointments from 01/18/2018 12:35 PM:* #1 Office appointment: : Connie Fay * #1 Date/Time : 01/23/2018 11:00 AM * Address # 1 : [facility]: [address], [address] [facility] * #2 Office appointment: : Kavya Funes * #2 Date/Time : 01/24/2018 9:40 AM * Address # 2 : [facility]: [address], [address] [facility] Follow-up Appointments from 01/18/2018 10:04 AM:* #1 Office appointment: : Connie Fay * #1 Date/Time : 01/23/2018 11:00 AM * Address # 1 : [facility]: [address], [address] [place] [facility] * #2 Office appointment: : Kavya Funes * #2 Date/Time : 01/24/2018 9:40 AM * Address # 2 : [facility]: [address], [address], [place] - Procedures No relevant procedures performed. Immunizations No immunizations administered or ordered. Hospital Course Hospital Discharge Instructions How to care for yourself at home from 01/18/2018 12:35 PM:* Discharge Activity : Activity as tolerated * Discharge Diet : As before hospitalization * Call your doctor if: : Fever over 101 F or severe chills,Chest pain or other unexplained symptoms,Tingling or numbness develops,A sudden increase or decrease in weight,You have persistent or worsening symptoms Allergies, Adverse Reactions, Alerts This section is exhibit display representative of the current allergy information, at the time o f the CCD generation. In the case of regeneration of the CCD, the allergy inform ation may not reflect the state of known allergies at the time of the CCD's subj ect visit. * No Latex Allergy. * No IV Contrast Allergy. * No Known Drug Allergies. Medication It is the responsibility of the patient or patient exhibit display representative to confirm the list of medications with either the patient's personal care provider or the pat ient's follow-up care provider to ensure the patient has an appropriate list of medications to take at home. Discharge medications New medications* nicotine (polacrilex) (Nicorelief) 2 mg Gum, Ordered By: ASRA HOPPER Directions: 1 gum oral daily for SMOKING CESSATION Additional Instructions: DO NOT GIVE IF PATIENT UNDER AGE 18 OR . Continued medications* hydrOXYzine HCl 25 mg Tablet, Ordered By: SARA HOPPER Directions: 1 tablet oral three times a day PRN anxiety * OLANZapine (ZyPREXA) 5 mg Tablet, Ordered By: SARA HOPPER Directions: 1 tablet oral daily at bedtime Changed medications* escitalopram oxalate (LexAPRO) 10 mg Tablet, Ordered By: SARA HOPPER Directions: 1 tablet oral daily for depression Stopped medications* None
--- OUTSIDE RECORDS SUMMARY | 2019-06-11 19:00 | XMS REPORT | Referral Summary ---
Author Author [facility] Organization [facility] Address Unknown Phone Unavailable Care Team Providers Care Laborer Aquatic Life Name Role Phone [facility] PCP Unavailable Encounter VC [facility] [id number] Date(s): 10/02/16 - 10/02/16 [facility] [address] [place] [address] [phone] Discharge Diagnosis: Ankle sprain Discharge Disposition: 01-Home or Self Care Attending Physician: Sherwin Stubbs MD Admitting Physician: Sherwin Stubbs MD Vital Signs Most recent to 1 oldest [Reference Range]: Temperature Oral 36.7 degC [35.8-37.3 degC] (10/02/16 10:31 PM) Peripheral Pulse 90 bpm Rate [60-100 bpm] (10/02/16 11:22 PM) Respiratory Rate 14 br/min [14-20 br/min] (10/02/16 11:22 PM) Blood Pressure 133/78 mmHg [90-140/60-90 mmHg] (10/02/16 11:22 PM) SpO2 97 % (10/02/16 11:22 PM) Problem List Condition Effective Dates Status [...]
--- OUTSIDE RECORDS SUMMARY | 2019-06-11 19:00 | XMS REPORT | Referral Summary ---
Author Author [facility] Organization [facility] Address Unknown Phone Unavailable Care Team Providers Care Compressor Stations Superintendent Name Role Phone [facility] PCP Unavailable Encounter VC BHANDARI [id number] Date(s): 10/11/16 - 10/11/16 [facility] [address] [place] [address] [phone] Discharge Diagnosis: Anxiety Final: Anxiety disorder, unspecified Final: Nicotine dependence, cigarettes, uncomplicated Discharge Diagnosis: Arthritis Discharge Disposition: 01-Home or Self Care Attending Physician: Sherwin Stubbs MD Admitting Physician: Sherwin Stubbs MD Vital Signs Most recent to 1 oldest [Reference Range]: Temperature Oral 36.9 degC [35.8-37.3 degC] (10/11/16 3:05 AM) Peripheral Pulse 95 bpm Rate [60-100 bpm] (10/11/16 3:50 AM) Respiratory Rate 25 br/min [14-20 br/min] *HI* (10/11/16 3:50 AM) Blood Pressure 138/94 mmHg [90-140/60-90 mmHg] (10/11/16 3:50 AM) SpO2 99 % (10/11/16 3:50 AM) Problem List Condition Effective Dates Status [...]
--- OUTSIDE RECORDS SUMMARY | 2019-06-11 19:00 | XMS REPORT | Referral Summary ---
Author Author [facility] Organization [facility] Address Unknown Phone Unavailable Care Team Providers Care Employee Relation Manager Name Role Phone No PCP, Pt States PCP Encounter VC [facility] [id number] Date(s): 01/04/17 - 01/04/17 [facility] [address] [place] [address] Discharge Diagnosis: Chronic pain of left ankle Discharge Disposition: 01-Home or Self Care Attending Physician: Sherwin Stubbs MD Admitting Physician: Sherwin Stubbs MD Referring Physician: Self Referred, X Vital Signs Most recent to 1 oldest [Reference Range]: Temperature Oral 36.6 degC [35.8-37.3 degC] (01/04/17 4:03 PM) Peripheral Pulse 95 bpm Rate [60-100 bpm] (01/04/17 4:03 PM) Respiratory Rate 18 br/min [14-20 br/min] (01/04/17 4:03 PM) Blood Pressure 145/95 mmHg [90-140/60-90 mmHg] *HI* (01/04/17 4:03 PM) SpO2 98 % (01/04/17 4:03 PM) Problem List Condition Effective Dates Status Health Status Informant Acute Active pain(Confirmed) Anxiety(Confirmed) Active patient Tobacco Active patient user(Confirmed) Allergies, Adverse Reactions, Alerts No Known Allergies Medications hydrOXYzine hydrochloride 25 mg oral tablet 50 mg 2 tabs, Oral, TID, Anxiety, 0 Refill(s) Start Date: 11/13/16 Status: Ordered Lexapro 20 mg oral tablet 20 mg 1 tabs, Oral, Daily, 0 Refill(s) Start Date: 11/13/16 Status: Ordered ranitidine 150 mg, Oral, BID, 0 Refill(s) Start Date: 11/10/16 Status: Ordered traMADol 50 mg oral tablet 50 mg 1 tabs, Oral, q6hr, Pain Moderate (4-6), X 2 days, # 10 tabs, 0 Refill(s) Start Date: 01/04/17 Stop Date: 01/06/17 Status: Ordered Results No data available for [...]
--- OUTSIDE RECORDS SUMMARY | 2019-06-11 19:00 | XMS REPORT | Referral Summary ---
Author Author [facility] Organization [facility] Address Unknown Phone Unavailable Care Team Providers Care Analysis Evaluator Name Role Phone [facility] PCP Unavailable Encounter VC THONY [id number] Date(s): 09/22/16 - 09/22/16 [facility] [address] [place] [address] [phone] Discharge Disposition: Without Being Seen Attending Physician: Sherwin Stubbs MD Admitting Physician: Sherwin Stubbs MD Vital Signs Most recent to 1 oldest [Reference Range]: Temperature Oral 36.9 degC [35.8-37.3 degC] (09/22/16 9:22 PM) Peripheral Pulse 103 bpm Rate [60-100 bpm] *HI* (09/22/16 9:22 PM) Respiratory Rate 22 br/min [14-20 br/min] *HI* (09/22/16 9:22 PM) Blood Pressure 146/86 mmHg [90-140/60-90 mmHg] *HI* (09/22/16 9:22 PM) SpO2 100 % (09/22/16 9:22 PM) Problem List Condition Effective Dates Status [...]
--- OUTSIDE RECORDS SUMMARY | 2019-06-11 19:01 | XMS REPORT ---
Author Author GENERATED, SYSTEM Organization Unknown Address Unknown Phone Unavailable Care Team Providers Care Machine Fancy Stitcher Name Role Phone UNASSIGNED DOCTOR , DOCTOR PP Reason For Visit Reason for Visit from 10/18/2017 12:03 PM:* Pt Stated Reason for Adm : "Suicidal thoughts" Reason for Visit from 10/17/2017 11:05 AM:* Pt Stated Reason for Adm : "Suicidal thoughts" Reason for Visit from 10/16/2017 2:35 PM:* Pt Stated Reason for Adm : "Suicidal thoughts" Chief Complaint UNSPECIFIED BIPOLAR Social History Social History from 10/18/2017 12:03 PM:* Tobacco Use? : Current Everyday Smoker Social History from 10/17/2017 11:05 AM:* Tobacco Use? : Current Everyday Smoker Social History from 10/16/2017 2:35 PM:* Tobacco Use? : Current Everyday Smoker Functional Status Functional Status from 10/18/2017 8:10 AM:* LOC : Alert * Oriented To : Person,Place,Time,Event * Weight Bearing Status : Full * Assist Level : Independent * # Assists : Independent Functional Status from 10/17/2017 9:00 PM:* LOC : Alert * Oriented To : Person,Place,Time,Event * Weight Bearing Status : Full * Assist Level : Independent * # Assists : Independent Functional Status from 10/17/2017 8:20 AM:* LOC : Irritable * Oriented To : Person,Place,Time,Event * Weight Bearing Status : Full * Assist Level : Independent * # Assists : Independent Functional Status from 10/16/2017 7:50 PM:* LOC : Alert * Oriented To : Person,Place,Time,Event * Weight Bearing Status : Full * Assist Level : Dependent * # Assists : Independent Functional Status from 10/16/2017 2:35 PM:* LOC : Alert * Oriented To : Person,Place,Time,Event * Weight Bearing Status : Full * Assist Level : Independent * # Assists : Independent Vital Signs Hospital Vital Signs from 10/18/2017 6:24 AM:* Weight : 70.2/ kg * Height : 5/9 ft,in * Temperature : 99.6 F * Pulse : 81 * Respirations : 16 * BP : 122/76 Hospital Vital Signs from 10/17/2017 7:55 AM:* Height : 5/9 ft,in Hospital Vital Signs from 10/17/2017 6:29 AM:* Height : 5/9 ft,in * Temperature : 99.5 F * Pulse : 76 * Respirations : 20 * BP : 139/86 Hospital Vital Signs from 10/16/2017 2:35 PM:* Weight : 68.9/ kg * Height : 5/9 ft,in Hospital Vital Signs from 10/16/2017 2:18 PM:* Weight : 68.9/ kg * Height : 5/9 ft,in * Temperature : 98.4 F * Pulse : 86 * Respirations : 18 * BP : 136/88 Results Chemistry from 10/17/2017 6:48 AMGLUCOSE (FASTING) 119 MG/DL H (65-99 MG/DL) Problems Encounter Diagnosis * Anxiety Status:Active. Encounters Encounter Diagnosis * Anxiety Status:Active. Plan of Care Follow-up Appointments from 10/18/2017 12:03 PM:* #1 Office appointment: : Debbie Agarwal * #1 Date/Time : 10/19/2017 3:30 PM * Address # [address] : [address] [phone] Follow-up Appointments from 10/18/2017 11:37 AM:* #1 Office appointment: : Debbie Agarwal * #1 Date/Time : 10/19/2017 3:30 PM * Address # [address] : [address] [phone] Procedures No relevant procedures performed. Immunizations No immunizations administered or ordered. Hospital Course Hospital Discharge Instructions How to care for yourself at home from 10/18/2017 12:03 PM:* Discharge Activity : Activity as tolerated * Discharge Diet : As before hospitalization * Call your doctor if: : Fever over 101 F or severe chills,Chest pain or other unexplained symptoms,Tingling or numbness develops,A sudden increase or decrease in weight,You have persistent or worsening symptoms Allergies, Adverse Reactions, Alerts This section is loss prevention representative of the current allergy information, at [...] the responsibility of the patient or patient loss prevention representative to confirm the list of medications with either the patient's personal care provider or the pat ient's follow-up care provider to ensure the patient has an appropriate list of medications to take at home. Discharge medications New medications* nicotine (polacrilex) (Nicorelief) 2 mg Gum, Ordered By: CHRISTOPHER CASTRO, PAC Directions: 1 gum oral daily PRN SMOKING CESSATION Additional Instructions: DO NOT GIVE IF PATIENT UNDER AGE 18 OR . Changed medications* escitalopram oxalate (LexAPRO) 20 mg Tablet, Ordered By: CHRISTOPHER CASTRO, PAC Directions: 1 tablet oral daily for depression * hydrOXYzine HCl 25 mg Tablet, Ordered By: CHRISTOPHER CASTRO, PAC Directions: 1 tablet oral three times a day PRN anxiety * risperidone (RisPERDal) 1 mg Tablet, Ordered By: CHRISTOPHER CASTRO, PAC Directions: 1 tablet oral twice a day for mood stabilization * ranitidine HCl 150 mg Capsule, Ordered By: CHRISTOPHER CASTRO, PAC Directions: 1 capsule oral twice a day for dyspepsia Stopped medications* risperiDONE microspheres (RisPERDal Consta) 25 mg/2 mL Syringe Directions: 2 mL intramuscular every 2 weeks Additional Instructions: Last IM May 2017
--- OUTSIDE RECORDS SUMMARY | 2019-06-11 19:01 | XMS REPORT ---
Author Author GENERATED, SYSTEM Organization Unknown Address Unknown Phone Unavailable Care Team Providers Care Flow Trader Name Role Phone UNASSIGNED DOCTOR , DOCTOR [...] 3:30 PM * Address # [address] : [address] [phone] Follow-up Appointments from 10/18/2017 11:37 AM:* #1 Office appointment: : Debbie Agarwal * #1 Date/Time : 10/19/2017 3:30 PM * Address # [address] : [address] [phone] Procedures No relevant procedures performed. Immunizations No [...] Allergies, Adverse Reactions, Alerts This section is medical center representative of the current allergy information, at [...] the responsibility of the patient or patient medical center representative to confirm the list of medications [...]
--- OUTSIDE RECORDS SUMMARY | 2019-06-11 19:01 | XMS REPORT ---
Author Author GENERATED, SYSTEM Organization Unknown Address Unknown Phone Unavailable Care Team Providers Care Managing Supervisor Name Role Phone UNASSIGNED DOCTOR MD TORREY DOCTOR PP Reason For Visit Chief Complaint LT LEG PAIN Social History Functional Status Vital Signs Results DX Radiology from 01/10/2018 1:50 AMANKLE LEFT 3 VIEWS History: Left ankle injury Technique: 3 view ankle Priors: None. Findings: There has been ORIF of distal tibial and fibular fractures with lateral sideplate cortical screws which appear well healed. There is a single cortical screw which transfixes the tibiotalar joint passing through the anterior posterior distal tibial articular surface as well as through the talar dome. Hindfoot appears intact. Impression: Well healed distal tibial and fibular fractures without acute fracture. Electronically signed by: Rhett Mendez Dictated: 01/10/2018 07:20 (Reference Range: not available) CT Scan from 01/10/2018 3:09 AMCT LOW EXT LT WO CON_3D RECON History: left ankle inj Technique: Two-dimensional as well as three-dimensional reconstructions were performed of the left ankle. Priors: None. Findings: There posterior change of ORIF of a distal fibular fracture as well as the distal tibial fracture. Fractures appear well healed. In addition, there is a cortical screw which passes through the distal tibial articular surface and into the talar dome. 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 No acute fractures are identified. The hindfoot and visualized midfoot appears intact. Impression: Healed fractures the distal tibia and fibula without evidence of acute fracture. Moderate osteoarthritis the tibiotalar joint. Electronically signed by: Rhett Mendez Dictated: 01/10/2018 07:19 (Reference Range: not available) Problems Encounter Diagnosis No relevant problems exist. Additional Problems * Anxiety Comment:Problem resolved by [facility] Workflow upon Discharge, Status:Resolved. Encounters Encounter Diagnosis No relevant problems exist. Plan of Care Procedures No relevant procedures performed. Immunizations No immunizations administered or ordered. Hospital Course Hospital Discharge Instructions Allergies, Adverse Reactions, Alerts This section is leather goods sales representative of the current allergy information, at the time o f the CCD generation. In the case of regeneration of the CCD, the allergy inform ation may not reflect the state of known allergies at the time of the CCD's subj ect visit. * Latex Allergy has not been assessed. * IV Contrast Allergy has not been assessed. * No Known Drug Allergies. Medication Medication reconciliation has not been performed.
[2019-06-11] MEDS ORDERED: LACTATED RINGERS 1,000 ML IV ONE ×2 (19:02→20:25)
--- OUTSIDE RECORDS SUMMARY | 2019-06-11 19:03 | XMS REPORT | Continuity of Care Document ---
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 Ayah L 06/15/2016 F F41.9 Anxiety disorder, unspecified Boor, Ayah L 06/15/2016 F M13.872 Other specified arthritis, left ankle and foot Boor, Ayah L 06/15/2016 F F29 Unspecified psychosis not due to a substance or known physiological condition 06/21/2016 F F32.9 Major depressive disorder, single episode, unspecified 06/21/2016 F F41.9 Anxiety disorder, unspecified 06/21/2016 F M13.872 Other specified arthritis, left ankle and foot 06/22/2016 F F29 Unspecified psychosis not due to a substance or known physiological condition Boor, Ayah L 06/22/2016 F F32.9 Major depressive disorder, single episode, unspecified Boor, Ayah L 06/22/2016 F F41.9 Anxiety disorder, unspecified Boor, Ayah L 06/22/2016 F M13.872 Other specified arthritis, left ankle and foot Boor, Ayah L 06/22/2016 F F29 Unspecified psychosis not due to a substance or known physiological condition 07/23/2016 F F32.9 Major depressive disorder, single episode, unspecified Psy, Batch 07/23/2016 F F41.9 Anxiety disorder, unspecified Psy, Batch 07/23/2016 F M13.872 Other specified arthritis, left ankle and foot Psy, Batch 07/23/2016 F F29 Unspecified psychosis not due to a substance or known physiological condition Robyn Nava J 07/23/2016 F F32.9 Major depressive disorder, single episode, unspecified Nava, Robyn J 07/23/2016 F F41.9 Anxiety disorder, unspecified Nava, Robyn J 07/23/2016 F M13.872 Other specified arthritis, left ankle and foot Nava, Robyn J 07/25/2016 F F29 Unspecified psychosis not due to a substance or known physiological condition Psy, Batch 07/25/2016 F F32.9 Major depressive disorder, single episode, unspecified Norton, Fariha Lorena 07/25/2016 F F41.9 Anxiety disorder, unspecified Norton, Fariha Lorena 07/25/2016 F K21.9 Gastro-esophageal reflux disease without esophagitis NortonChikisFariha Lorena 07/25/2016 F M13.872 Other specified arthritis, left ankle and foot Norton, Fariha Lorena 08/30/2016 F F32.9 Major depressive disorder, single episode, unspecified Psy, Batch 08/30/2016 F F41.9 Anxiety disorder, unspecified Psy, Batch 08/30/2016 F M13.872 Other specified arthritis, left ankle and foot Psy, Batch 08/30/2016 F F29 Unspecified psychosis not due to a substance or known physiological condition Jean-Paul, Anaidy 08/30/2016 F F32.9 Major depressive disorder, single episode, unspecified Jean-Paul, Anaidy 08/30/2016 F F41.9 Anxiety disorder, unspecified Jean-Paul, Anaidy 08/30/2016 F M13.872 Other specified arthritis, left ankle and foot Jean-Paul, Anaidy 08/30/2016 F F29 Unspecified psychosis not due to a substance or known physiological condition Psy, Batch 08/30/2016 F F29 Unspecified psychosis not due to a substance or known physiological condition EscaleraTiffany samuels 08/30/2016 F F32.9 Major depressive disorder, single episode, unspecified Escalera, Tiffany 08/30/2016 F F41.9 Anxiety disorder, unspecified Escalera, Tiffany 08/30/2016 F M13.872 Other specified arthritis, left ankle and foot Tiffany Escalera 08/30/2016 F F32.9 Major depressive disorder, single episode, unspecified Psy, Batch 08/30/2016 F F41.9 Anxiety disorder, unspecified Psy, Batch 08/30/2016 F M13.872 Other specified arthritis, left ankle and foot Psy, Batch 08/30/2016 F F29 Unspecified psychosis not due to a substance or known physiological condition Psy, Batch 08/30/2016 F F32.9 Major depressive disorder, single episode, unspecified Norton, Fariha Lorena 08/30/2016 F F41.9 Anxiety disorder, unspecified Norton, Fariha Lorena 08/30/2016 F K21.9 Gastro-esophageal reflux disease without esophagitis Chikis Nortonricia Lorena 08/30/2016 F M13.872 Other specified arthritis, left ankle and foot Norton, Fariha Lorena 09/01/2016 F F32.9 Major depressive disorder, single episode, unspecified Psy, Batch 09/01/2016 F F41.9 Anxiety disorder, unspecified Psy, Batch 09/01/2016 F M13.872 Other specified arthritis, left ankle and foot Psy, Batch 09/01/2016 F F29 Unspecified psychosis not due to a substance or known physiological condition Vinny, Phuong Lois 09/01/2016 F F32.9 Major depressive disorder, single episode, unspecified Vinny, Phuong Lois 09/01/2016 F F41.9 Anxiety disorder, unspecified Vinny, Phuong Lois 09/01/2016 F M13.872 Other specified arthritis, left ankle and foot Vinny, Phuong Lois 09/01/2016 F F29 Unspecified psychosis not due to a substance or known physiological condition Psy, Batch 09/02/2016 F F32.9 Major depressive disorder, single episode, unspecified Chambers, Maxine Bita 09/02/2016 F F41.9 Anxiety disorder, unspecified Chambers, Maxine Bita 09/02/2016 F M13.872 Other specified arthritis, left ankle and foot Chambers, Maxine Bita 09/05/2016 F F29 Unspecified psychosis not due to a substance or known physiological condition Chambers, Maxine Bita 09/05/2016 F F29 Unspecified psychosis not due to a substance or known physiological condition Chambers, Maxine Bita 09/06/2016 F F32.9 Major depressive disorder, single episode, unspecified Psy, Batch 09/06/2016 F F41.9 Anxiety disorder, unspecified Psy, Batch 09/06/2016 F M13.872 Other specified arthritis, left ankle and foot Psy, Batch 09/06/2016 F F29 Unspecified psychosis not due to a substance or known physiological condition Long, Constance Denise 09/06/2016 F F32.9 Major depressive disorder, single episode, unspecified Long, Constance Denise 09/06/2016 F F41.9 Anxiety disorder, unspecified Long, Constance Denise 09/06/2016 F M13.872 Other specified arthritis, left ankle and foot Long, Constance Denise 09/07/2016 F F29 Unspecified psychosis not due to a substance or known physiological condition Psy, Batch 09/11/2016 F F29 Unspecified psychosis not due to a substance or known physiological condition Charles, Lay 09/11/2016 F F32.9 Major depressive disorder, single episode, unspecified Chambers, Maxine Bita 09/11/2016 F F41.9 Anxiety disorder, unspecified Chambers, Maxine Bita 09/11/2016 F M13.872 Other specified arthritis, left ankle and foot Chambers, Maxine Bita 09/11/2016 F F32.9 Major depressive disorder, single episode, unspecified Yaniv, Maia D 09/11/2016 F F41.9 Anxiety disorder, unspecified Ynaiv, Maia D 09/11/2016 F M13.872 Other specified arthritis, left ankle and foot Yaniv, Maia D 09/11/2016 F F32.9 Major depressive disorder, single episode, unspecified Charles, Lay 09/11/2016 F F41.9 Anxiety disorder, unspecified Charles, Lay 09/11/2016 F K21.9 Gastro-esophageal reflux disease without esophagitis Charles, Lay 09/11/2016 F M13.872 Other specified arthritis, left ankle and foot Charles, Lay 09/12/2016 F F32.9 Major depressive disorder, single episode, unspecified Chambers, Maxine Bita 09/12/2016 F F41.9 Anxiety disorder, unspecified Chambers, Maxine 09/12/2016 F M13.872 Other specified arthritis, left ankle and foot Chambers, 09/12/2016 F F29 Unspecified psychosis not due to a substance or known physiological condition Maia Purvis 09/13/2016 F F32.9 Major depressive disorder, single episode, unspecified Chambers, Maxine09/13/2016 F F41.9 Anxiety disorder, unspecified Chambers, Maxine09/13/2016 F M13.872 Other specified arthritis, left ankle and foot Chambers, 09/14/2016 F F32.9 Major depressive disorder, single episode, unspecified Chambers, Maxine09/14/2016 F F41.9 Anxiety disorder, unspecified Chambers, Maxine09/14/2016 F M13.872 Other specified arthritis, left ankle and foot Chambers, Maxine09/15/2016 F F29 Unspecified psychosis not due to a substance or known physiological condition Chambers, Maxine09/15/2016 F F29 Unspecified psychosis not due to a substance or known physiological condition Chambers, Maxine09/15/2016 F F29 Unspecified psychosis not due to a substance or known physiological condition Chambers, Maxine09/15/2016 F F29 Unspecified psychosis not due to a substance or known physiological condition Chambers, Maxine09/17/2016 F F32.9 Major depressive disorder, single episode, unspecified Psy, Batch 09/17/2016 F F41.9 Anxiety disorder, unspecified Psy, Batch 09/17/2016 F M13.872 Other specified arthritis, left ankle and foot Psy, Batch 09/18/2016 F F32.9 Major depressive disorder, single episode, unspecified Psy, Batch 09/18/2016 F F41.9 Anxiety disorder, unspecified Psy, Batch 09/18/2016 F M13.872 Other specified arthritis, left ankle and foot Psy, Batch 09/18/2016 F F29 Unspecified psychosis not due to a substance or known physiological condition Wade, Bobbi 09/18/2016 F F32.9 Major depressive disorder, single episode, unspecified Wade, Bobbi 09/18/2016 F F41.9 Anxiety disorder, unspecified [place], Bobbi 09/18/2016 F M13.872 Other specified arthritis, left ankle and foot [place], Bobbi 09/18/2016 F F29 Unspecified psychosis not due to a substance or known physiological condition Psy, Batch 09/18/2016 F F32.9 Major depressive disorder, single episode, unspecified Psy, Batch 09/18/2016 F F41.9 Anxiety disorder, unspecified Psy, Batch 09/18/2016 F M13.872 Other specified arthritis, left ankle and foot Psy, Batch 09/18/2016 F F29 Unspecified psychosis not due to a substance or known physiological condition Black, [facility] 09/18/2016 F F32.9 Major depressive disorder, single episode, unspecified Black, [facility] 09/18/2016 F F41.9 Anxiety disorder, unspecified Black, [facility] 09/18/2016 F M13.872 Other specified arthritis, left ankle and foot Black, [facility] 09/18/2016 F F32.9 Major depressive disorder, single episode, unspecified Psy, Batch 09/18/2016 F F41.9 Anxiety disorder, unspecified Psy, Batch 09/18/2016 F M13.872 Other specified arthritis, left ankle and foot Psy, Batch 09/18/2016 F F29 Unspecified psychosis not due to a substance or known physiological condition Psy, Batch 09/18/2016 F F29 Unspecified psychosis not due to a substance or known physiological condition [place], [place] 09/18/2016 F F32.9 Major depressive disorder, single episode, unspecified [place], Venus 09/18/2016 F F41.9 Anxiety disorder, unspecified [place], Venus 09/18/2016 F M13.872 Other specified arthritis, left ankle and foot [place], Venus 09/18/2016 F F29 Unspecified psychosis not due to a substance or known physiological condition Psy, Batch 09/19/2016 F F32.9 Major depressive disorder, single episode, unspecified Psy, Batch 09/19/2016 F F41.9 Anxiety disorder, unspecified Psy, Batch 09/19/2016 F M13.872 Other specified arthritis, left ankle and foot Psy, Batch 09/19/2016 F F29 Unspecified psychosis not due to a substance or known physiological condition Psy, Batch 09/19/2016 F F32.9 Major depressive disorder, single episode, unspecified Psy, Batch 09/19/2016 F F41.9 Anxiety disorder, unspecified Psy, Batch 09/19/2016 F M13.872 Other specified arthritis, left ankle and foot Psy, Batch 09/19/2016 F F29 Unspecified psychosis not due to a substance or known physiological condition Darland, Nikki Lorena 09/19/2016 F F32.9 Major depressive disorder, single episode, unspecified Darland, Nikki Lorena 09/19/2016 F F41.9 Anxiety disorder, unspecified Darland, Nikki Lorena 09/19/2016 F M13.872 Other specified arthritis, left ankle and foot Darland, Nikki Lorena 09/19/2016 F F29 Unspecified psychosis not due to a substance or known physiological condition Psy, Batch 09/19/2016 F F32.9 Major depressive disorder, single episode, unspecified Charles, Lay 09/19/2016 F F41.9 Anxiety disorder, unspecified Charles, Lay 09/19/2016 F K21.9 Gastro-esophageal reflux disease without esophagitis Charles, Lay 09/19/2016 F M13.872 Other specified arthritis, left ankle and foot Charles, Lay 09/19/2016 F F32.9 Major depressive disorder, single episode, unspecified Chevalier, Irma 09/19/2016 F F41.9 Anxiety disorder, unspecified Chevalier, Irma 09/19/2016 F M13.872 Other specified arthritis, left ankle and foot Chevalier, Irma 09/19/2016 F F29 Unspecified psychosis not due to a substance or known physiological condition Chevalier, Irma 09/19/2016 F F32.9 Major depressive disorder, single episode, unspecified Chevalier, Irma 09/19/2016 F F41.9 Anxiety disorder, unspecified Chevalier, Irma 09/19/2016 F M13.872 Other specified arthritis, left ankle and foot Chevalier, Irma 09/19/2016 F F29 Unspecified psychosis not due to a substance or known physiological condition Chevalier, Irma 09/20/2016 F F32.9 Major depressive disorder, single episode, unspecified Psy, Batch 09/20/2016 F F41.9 Anxiety disorder, unspecified Psy, Batch 09/20/2016 F M13.872 Other specified arthritis, left ankle and foot Psy, Batch 09/20/2016 F F29 Unspecified psychosis not due to a substance or known physiological condition Long, [facility] 09/20/2016 F F32.9 Major depressive disorder, single episode, unspecified Long, Constance Denise 09/20/2016 F F41.9 Anxiety disorder, unspecified Long, Constance Denise 09/20/2016 F M13.872 Other specified arthritis, left ankle and foot Long, Constance Denise 09/21/2016 F F29 Unspecified psychosis not due to a substance or known physiological condition Psy, Batch 09/21/2016 F F32.9 Major depressive disorder, single episode, unspecified Psy, Batch 09/21/2016 F F41.9 Anxiety disorder, unspecified Psy, Batch 09/21/2016 F M13.872 Other specified arthritis, left ankle and foot Psy, Batch 09/21/2016 F F32.9 Major depressive disorder, single episode, unspecified Psy, Batch 09/21/2016 F F41.9 Anxiety disorder, unspecified Psy, Batch 09/21/2016 F M13.872 Other specified arthritis, left ankle and foot Psy, Batch 09/21/2016 F F29 Unspecified psychosis not due to a substance or known physiological condition Mike, Rosita A 09/21/2016 F F32.9 Major depressive disorder, single episode, unspecified Mike, Rosita A 09/21/2016 F F41.9 Anxiety disorder, unspecified Mike, Rosita A 09/21/2016 F M13.872 Other specified arthritis, left ankle and foot Mike, Rosita A 09/21/2016 F F29 Unspecified psychosis not due to a substance or known physiological condition Psy, Batch 09/21/2016 F F32.9 Major depressive disorder, single episode, unspecified Charles, Lay 09/21/2016 F F41.9 Anxiety disorder, unspecified Charles, Lay 09/21/2016 F K21.9 Gastro-esophageal reflux disease without esophagitis Charles, Lay 09/21/2016 F M13.872 Other specified arthritis, left ankle and foot Charles, Lay 09/21/2016 F F32.9 Major depressive disorder, single episode, unspecified Chevalier, Irma 09/21/2016 F F41.9 Anxiety disorder, unspecified Chevalier, Irma 09/21/2016 F M13.872 Other specified arthritis, left ankle and foot Chevalier, Irma 09/21/2016 F F29 Unspecified psychosis not due to a substance or known physiological condition Chevalier, Irma 09/21/2016 F F32.9 Major depressive disorder, single episode, unspecified Chevalier, Irma 09/21/2016 F F41.9 Anxiety disorder, unspecified Chevalier, Irma 09/21/2016 F M13.872 Other specified arthritis, left ankle and foot Chevalier, Irma 09/21/2016 F F32.9 Major depressive disorder, single episode, unspecified Psy, Batch 09/21/2016 F F41.9 Anxiety disorder, unspecified Psy, Batch 09/21/2016 F M13.872 Other specified arthritis, left ankle and foot Psy, Batch 09/21/2016 F F29 Unspecified psychosis not due to a substance or known physiological condition Chevalier, Irma 09/21/2016 F F29 Unspecified psychosis not due to a substance or known physiological condition Tjaden, Adelfo 09/21/2016 F F32.9 Major depressive disorder, single episode, unspecified Tjaden, Adelfo 09/21/2016 F F41.9 Anxiety disorder, unspecified Tjaden, Adelfo 09/21/2016 F M13.872 Other specified arthritis, left ankle and foot Tjaden, Adelfo 09/22/2016 F F29 Unspecified psychosis not due to a substance or known physiological condition Phuong Casillas 09/22/2016 F F29 Unspecified psychosis not due to a substance or known physiological condition Psy, Batch 09/22/2016 F F32.9 Major depressive disorder, single episode, unspecified Charles, Lay 09/22/2016 F F41.9 Anxiety disorder, unspecified Charles, Lay 09/22/2016 F K21.9 Gastro-esophageal reflux disease without esophagitis Charles, Lay 09/22/2016 F M13.872 Other specified arthritis, left ankle and foot Charles, Lay 09/22/2016 F F32.9 Major depressive disorder, single episode, unspecified Kendrick, [facility] 09/22/2016 F F41.9 Anxiety disorder, unspecified Kendrick, [facility] 09/22/2016 F M13.872 Other specified arthritis, left ankle and foot Kendrick, [facility] 09/22/2016 F F32.9 Major depressive disorder, single episode, unspecified Psy, Batch 09/22/2016 F F41.9 Anxiety disorder, unspecified Psy, Batch 09/22/2016 F M13.872 Other specified arthritis, left ankle and foot Psy, Batch 09/22/2016 F F29 Unspecified psychosis not due to a substance or known physiological condition Oswaldo Freya 09/22/2016 F F32.9 Major depressive disorder, single episode, unspecified Chacon, Freya 09/22/2016 F F41.9 Anxiety disorder, unspecified Chacon, Freya 09/22/2016 F M13.872 Other specified arthritis, left ankle and foot Chacon, Freya 09/22/2016 F F32.9 Major depressive disorder, single episode, unspecified Psy, Batch 09/22/2016 F F41.9 Anxiety disorder, unspecified Psy, Batch 09/22/2016 F M13.872 Other specified arthritis, left ankle and foot Psy, Batch 09/22/2016 F F29 Unspecified psychosis not due to a substance or known physiological condition Psy, Batch 09/22/2016 F F32.9 Major depressive disorder, single episode, unspecified Charles, Lay 09/22/2016 F F41.9 Anxiety disorder, unspecified Charles, Lay 09/22/2016 F K21.9 Gastro-esophageal reflux disease without esophagitis Charles, Lay 09/22/2016 F M13.872 Other specified arthritis, left ankle and foot Charles, Lay 09/22/2016 F F29 Unspecified psychosis not due to a substance or known physiological condition [place], Paulette Rheaan 09/22/2016 F F32.9 Major depressive disorder, single episode, unspecified Indira, Paulette Rheaan 09/22/2016 F F41.9 Anxiety disorder, unspecified [place], Paulette Rheaan 09/22/2016 F M13.872 Other specified arthritis, left ankle and foot Paulette Jacobson 09/22/2016 F F29 Unspecified psychosis not due to a substance or known physiological condition Psy, Batch 09/22/2016 F F29 Unspecified psychosis not due to a substance or known physiological condition Sampson, Miya Elizondon 09/22/2016 F F32.9 Major depressive disorder, single episode, unspecified Braden, Miya Antonette 09/22/2016 F F41.9 Anxiety disorder, unspecified Braden, Miya Antonette 09/22/2016 F M13.872 Other specified arthritis, left ankle and foot Braden, Miya Antonette 09/22/2016 F F32.9 Major depressive disorder, single episode, unspecified Psy, Batch 09/22/2016 F F41.9 Anxiety disorder, unspecified Psy, Batch 09/22/2016 F M13.872 Other specified arthritis, left ankle and foot Psy, Batch 09/23/2016 F F29 Unspecified psychosis not due to a substance or known physiological condition Psy, Batch 09/23/2016 Bruey,, Lois Reason F41.9 Anxiety disorder, unspecified 09/23/2016 Bruey,, Lois Final M25.572 Pain in left ankle and joints of left foot 09/23/2016 F F32.9 Major depressive disorder, single episode, unspecified Psy, Batch 09/23/2016 F F41.9 Anxiety disorder, unspecified Psy, Batch 09/23/2016 F M13.872 Other specified arthritis, left ankle and foot Psy, Batch 09/23/2016 F F29 Unspecified psychosis not due to a substance or known physiological condition Vinny, Phuong Lois 09/23/2016 F F32.9 Major depressive disorder, single episode, unspecified Vinny, Phuong Lois 09/23/2016 F F41.9 Anxiety disorder, unspecified Vinny, Phuong Lois 09/23/2016 F M13.872 Other specified arthritis, left ankle and foot Vinny, Phuong Lois 09/23/2016 F F29 Unspecified psychosis not due to a substance or known physiological condition Chevalier Irma 09/23/2016 F F32.9 Major depressive disorder, single episode, unspecified Chevalier, Irma 09/23/2016 F F41.9 Anxiety disorder, unspecified Chevalier, Irma 09/23/2016 F M13.872 Other specified arthritis, left ankle and foot Chevalier, Irma 09/23/2016 F F29 Unspecified psychosis not due to a substance or known physiological condition Psy, Batch 09/24/2016 F F29 Unspecified psychosis not due to a substance or known physiological condition Psy, Batch 09/26/2016 Enoc,Sherwin Final F32.9 Major depressive disorder, single episode, unspecified 09/26/2016 Enoc,Sherwin Reason F41.9 Anxiety disorder, unspecified 09/27/2016 Enoc,Sherwin Final F17.210 Nicotine dependence, cigarettes, uncomplicated 09/27/2016 Enoc,Sherwin Reason F41.9 Anxiety disorder, unspecified 09/28/2016 Zina Salinas Final R07.89 Other chest pain 09/28/2016 Zina Salinas Reason R07.9 Chest pain, unspecified 09/28/2016 F F32.9 Major depressive disorder, single episode, unspecified Vinny, Phuong Lois 09/28/2016 F F41.9 Anxiety disorder, unspecified Vinny, Phuong Lois 09/28/2016 F K21.9 Gastro-esophageal reflux disease without esophagitis Vinny, Phuong Lois 09/28/2016 F M13.872 Other specified arthritis, left ankle and foot Vinny, Phuong Lois 10/02/2016 F F31.2 Bipolar disorder, current episode manic severe with psychotic features Hailey Carolucero 10/02/2016 F K21.9 Gastro-esophageal reflux disease without esophagitis Hailey Carolucero 10/02/2016 F M13.872 Other specified arthritis, left ankle and foot Regino Hartnichelle 10/02/2016 F F32.9 Major depressive disorder, single episode, unspecified Psy, Batch 10/02/2016 F F41.9 Anxiety disorder, unspecified Psy, Batch 10/02/2016 F M13.872 Other specified arthritis, left ankle and foot Psy, Batch 10/02/2016 F F29 Unspecified psychosis not due to a substance or known physiological condition Hailey Caroluecro 10/02/2016 F F32.9 Major depressive disorder, single episode, unspecified Hailey, Kiley 10/02/2016 F F41.9 Anxiety disorder, unspecified Hailey, Kiley 10/02/2016 F M13.872 Other specified arthritis, left ankle and foot Hailey, Kiley 10/02/2016 F M13.872 Other specified arthritis, left ankle and foot Psy, Batch 10/02/2016 F K21.9 Gastro-esophageal reflux disease without esophagitis Hailey, Kiley 10/02/2016 F M13.872 Other specified arthritis, left ankle and foot Kiley Hart 10/03/2016 F F31.2 Bipolar disorder, current episode manic severe with psychotic features Gleason, Peter 10/03/2016 F M13.872 Other specified arthritis, left ankle and foot Gleason, Peter 10/03/2016 F F31.2 Bipolar disorder, current episode manic severe with psychotic features Psy, Batch 10/03/2016 F M13.872 Other specified arthritis, left ankle and foot Psy, Batch 10/03/2016 F F29 Unspecified psychosis not due to a substance or known physiological condition Ethan Marks 10/03/2016 F F29 Unspecified psychosis not due to a substance or known physiological condition Psy, Batch 10/03/2016 F M13.872 Other specified arthritis, left ankle and foot Chevalier, Irma 10/03/2016 F F31.2 Bipolar disorder, current episode manic severe with psychotic features Chevalier, Irma 10/03/2016 F M13.872 Other specified arthritis, left ankle and foot Chevalier, Irma 10/03/2016 F F31.2 Bipolar disorder, current episode manic severe with psychotic features Chevalier, Irma 10/03/2016 F F31.2 Bipolar disorder, current episode manic severe with psychotic features Alonzo Estefanía Antonette 10/03/2016 F M13.872 Other specified arthritis, left ankle and foot Alonzo, Estefanía Antonette 10/04/2016 F F31.2 Bipolar disorder, current episode manic severe with psychotic features Psy, Batch 10/04/2016 Stubbs Howard Final F17.210 Nicotine dependence, cigarettes, uncomplicated 10/04/2016 Stubbs Howard Final S93.402A Sprain of unspecified ligament of left ankle, initial encounter 10/04/2016 Stubbs Howard Reason S99.912A Unspecified injury of left ankle, initial encounter 10/04/2016 Stubbs Howard Final X58.XXXA Exposure to other specified factors, initial encounter 10/05/2016 F F31.2 Bipolar disorder, current episode manic severe with psychotic features David Bowdenn 10/05/2016 F M13.872 Other specified arthritis, left ankle and foot Chevalier, Irma 10/05/2016 F M13.872 Other specified arthritis, left ankle and foot Chevalier, Irma 10/05/2016 F M13.872 Other specified arthritis, left ankle and foot Psy, Batch 10/05/2016 F F31.2 Bipolar disorder, current episode manic severe with psychotic features David Bowdenn 10/05/2016 F F31.2 Bipolar disorder, current episode manic severe with psychotic features Mario Alberto Vish 10/05/2016 F M13.872 Other specified arthritis, left ankle and foot Mario Alberto Vish 10/06/2016 F F31.2 Bipolar disorder, current episode manic severe with psychotic features Debbie Agarwal 10/06/2016 F M13.872 Other specified arthritis,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 Gleason, Peter 11/28/2018 F F31.5 Bipolar disorder, current episode depressed, severe, with psychotic features Gleason, Peter 11/29/2018 F F15.99 Other stimulant use, unspecified with unspecified stimulant-induced disorder Lamin Thao 11/29/2018 F F31.5 Bipolar disorder, current episode depressed, severe, with psychotic features Lamin Thao 11/29/2018 F F15.99 Other stimulant use, unspecified with unspecified stimulant-induced disorder Psy, Batch 11/29/2018 F F31.5 Bipolar disorder, current episode depressed, severe, with psychotic features Psy, Batch 11/29/2018 F F15.99 Other stimulant use, unspecified with unspecified stimulant-induced disorder Psy, Batch 11/29/2018 F F31.5 Bipolar disorder, current episode depressed, severe, with psychotic features Psy, Batch 11/29/2018 F F15.99 Other stimulant use, unspecified with unspecified stimulant-induced disorder Asa Ammallory, [place]ord[place] 11/29/2018 F F31.5 Bipolar disorder, current episode depressed, severe, with psychotic features Bray Ammallory, [place] 11/29/2018 F F15.99 Other stimulant use, unspecified with unspecified stimulant-induced disorder Debbie Agarwal 11/29/2018 F F31.5 Bipolar disorder, current episode depressed, severe, with psychotic features Debbie Agarwal 11/29/2018 F F15.99 Other stimulant use, unspecified with unspecified stimulant-induced disorder Isiah Sosa D 11/29/2018 F F31.5 Bipolar disorder, current episode depressed, severe, with psychotic features Sosa, Quapri D 11/29/2018 F F15.99 Other stimulant use, unspecified with unspecified stimulant-induced disorder Psy, Batch 11/29/2018 F F31.5 Bipolar disorder, current episode depressed, severe, with psychotic features Psy, Batch 11/29/2018 F F15.99 Other stimulant use, unspecified with unspecified stimulant-induced disorder Garland Calvin 11/29/2018 F F31.5 Bipolar disorder, current episode depressed, severe, with psychotic features Garland, Calvin 11/29/2018 F F15.99 Other stimulant use, unspecified with unspecified stimulant-induced disorder Psy, Batch 11/29/2018 F F31.5 Bipolar disorder, current episode depressed, severe, with psychotic features Psy, Batch 11/29/2018 F F15.99 Other stimulant use, unspecified with unspecified stimulant-induced disorder Marixa Alvarenga 11/29/2018 F F31.5 Bipolar disorder, current episode depressed, severe, with psychotic features Marixa Alvarenga 11/29/2018 F F15.99 Other stimulant use, unspecified with unspecified stimulant-induced disorder Psy, Batch 11/29/2018 F F31.5 Bipolar disorder, current episode depressed, severe, with psychotic features Psy, Batch 11/29/2018 F F15.99 Other stimulant use, unspecified with unspecified stimulant-induced disorder Psy, Batch 11/29/2018 F F31.5 Bipolar disorder, current episode depressed, severe, with psychotic features Psy, Batch 11/29/2018 F F15.99 Other stimulant use, unspecified with unspecified stimulant-induced disorder Juan Manuel Headley 11/29/2018 F F31.5 Bipolar disorder, current episode depressed, severe, with psychotic features Juan Manuel Headleyhobrain 11/29/2018 F F15.99 Other stimulant use, unspecified with unspecified stimulant-induced disorder Jovan Llanes 11/29/2018 F F31.5 Bipolar disorder, current episode depressed, severe, with psychotic features Jovan Llanes 11/29/2018 F F15.99 Other stimulant use, unspecified with unspecified stimulant-induced disorder Psy, Batch 11/29/2018 F F31.5 Bipolar disorder, current episode depressed, severe, with psychotic features Psy, Batch 11/30/2018 F F15.99 Other stimulant use, unspecified with unspecified stimulant-induced disorder Psy, Batch 11/30/2018 F F31.5 Bipolar disorder, current episode depressed, severe, with psychotic features Psy, Batch 11/30/2018 Arboleda,, Ben Final F15.10 Other stimulant abuse, uncomplicated 11/30/2018 Arboleda,, Ben Final F17.210 Nicotine dependence, cigarettes, uncomplicated 11/30/2018 Arboleda,, Ben Final F32.9 Major depressive disorder, single episode, unspecified 11/30/2018 Arboleda,, Ben Final F41.9 Anxiety disorder, unspecified 11/30/2018 Arboleda,, Ben Reason R45.851 Suicidal ideations 11/30/2018 Arboleda,, Ben Final Z90.49 Acquired absence of other specified parts of digestive tract 11/30/2018 F F15.99 Other stimulant use, unspecified with unspecified stimulant-induced disorder Ciaran Loja 11/30/2018 F F31.5 Bipolar disorder, current episode depressed, severe, with psychotic features Ciaran Loja 11/30/2018 F F15.99 Other stimulant use, unspecified with unspecified stimulant-induced disorder Lois Magana 11/30/2018 F F31.5 Bipolar disorder, current episode depressed, severe, with psychotic features Lois Magana 11/30/2018 F F15.99 Other stimulant use, unspecified with unspecified stimulant-induced disorder Psy, Batch 11/30/2018 F F31.5 Bipolar disorder, current episode depressed, severe, with psychotic features Psy, Batch 11/30/2018 F F15.99 Other stimulant use, unspecified with unspecified stimulant-induced disorder Psy, Batch 11/30/2018 F F31.5 Bipolar disorder, current episode depressed, severe, with psychotic features Psy, Batch 11/30/2018 F F15.99 Other stimulant use, unspecified with unspecified stimulant-induced disorder Orville Gaytan 11/30/2018 F F31.5 Bipolar disorder, current episode depressed, severe, with psychotic features Orville Gaytan 11/30/2018 F F15.99 Other stimulant use, unspecified with unspecified stimulant-induced disorder Lupe Centeno Peyton 11/30/2018 F F31.5 Bipolar disorder, current episode depressed, severe, with psychotic features Lupe Centeno Peyton 11/30/2018 F F15.99 Other stimulant use, unspecified with unspecified stimulant-induced disorder Maribel Cunningham Nura 11/30/2018 F F31.5 Bipolar disorder, current episode depressed, severe, with psychotic features Maribel Cunningham 11/30/2018 F F15.99 Other stimulant use, unspecified with unspecified stimulant-induced disorder Psy, Batch 11/30/2018 F F31.5 Bipolar disorder, current episode depressed, severe, with psychotic features Psy, Batch 11/30/2018 F F15.99 Other stimulant use, unspecified with unspecified stimulant-induced disorder Psy, Batch 11/30/2018 F F31.5 Bipolar disorder, current episode depressed, severe, with psychotic features Psy, Batch 12/01/2018 F F15.99 Other stimulant use, unspecified with unspecified stimulant-induced disorder Orville Gaytan 12/01/2018 F F31.5 Bipolar disorder, current episode depressed, severe, with psychotic features Orville Gaytan 12/01/2018 F F15.99 Other stimulant use, unspecified with unspecified stimulant-induced disorder Maia Marquez 12/01/2018 F F31.5 Bipolar disorder, current episode depressed, severe, with psychotic features Maia Marquez 12/01/2018 F F15.99 Other stimulant use, unspecified with unspecified stimulant-induced disorder Psy, Batch 12/01/2018 F F31.5 Bipolar disorder, current episode depressed, severe, with psychotic features Psy, Batch 12/01/2018 F F15.99 Other stimulant use, unspecified with unspecified stimulant-induced disorder Psy, Batch 12/01/2018 F F31.5 Bipolar disorder, current episode depressed, severe, with psychotic features Psy, Batch 12/20/2018 F F15.99 Other stimulant use, unspecified with unspecified stimulant-induced disorder Orville Gaytan 12/20/2018 F F31.5 Bipolar disorder, current episode depressed, severe, with psychotic features Orville Gaytan 12/20/2018 F F15.99 Other stimulant use, unspecified with unspecified stimulant-induced disorder Psy, Batch 12/20/2018 F F31.5 Bipolar disorder, current episode depressed, severe, with psychotic features Psy, Batch 02/27/2019 Bounds, Tawanna Izaguirre F19.94 02/27/2019 Bounds, Tawanna Izaguirre F41.9 02/27/2019 Bounds, Tawanna Izaguirre R45.851 02/27/2019 Bounds, Tawanna Izaguirre Z79.899 02/27/2019 Bounds, Tawanna Other R45.851 R45.851 - Suicidal ideations 03/03/2019 F F15.90 Other stimulant use, unspecified, uncomplicated 03/03/2019 F F17.210 Nicotine dependence, cigarettes, uncomplicated 03/03/2019 F F31.9 Bipolar disorder, unspecified 03/03/2019 Reason For Visit F41.0 Panic disorder [episodic paroxysmal anxiety] 03/04/2019 F F15.20 Other stimulant dependence, uncomplicated Estefanía Rosado 03/04/2019 F F31.5 Bipolar disorder, current episode depressed, severe, with psychotic features WeldonEstefanía 03/04/2019 F F15.99 Other stimulant use, unspecified with unspecified stimulant-induced disorder WeldonEstefanía 03/04/2019 F F31.5 Bipolar disorder, current episode depressed, severe, with psychotic features Estefanía Rosado 03/04/2019 F F15.99 Other stimulant use, unspecified with unspecified stimulant-induced disorder Psy, Batch 03/04/2019 F F31.5 Bipolar disorder, current episode depressed, severe, with psychotic features Psy, Batch 03/04/2019 F F15.20 Other stimulant dependence, uncomplicated Lacy Thao 03/04/2019 F F31.5 Bipolar disorder, current episode depressed, severe, with psychotic features Lacy Thao 03/05/2019 F F15.20 Other stimulant dependence, uncomplicated Psy, Batch 03/05/2019 F F31.5 Bipolar disorder, current episode depressed, severe, with psychotic features Psy, Batch 03/12/2019 F F15.20 Other stimulant dependence, uncomplicated Maxine Ayoub 03/12/2019 F F31.5 Bipolar disorder, current episode depressed, severe, with psychotic features Maxine Ayoub 03/12/2019 F F15.20 Other stimulant dependence, uncomplicated Maxine Ayoub 03/12/2019 F F31.5 Bipolar disorder, current episode depressed, severe, with psychotic features Maxine Ayoub 03/12/2019 F F15.20 Other stimulant dependence, uncomplicated Maxine Ayoub 03/12/2019 F F31.5 Bipolar disorder, current episode depressed, severe, with psychotic features Maxine Ayoub 03/27/2019 Matt Ledesma Final F12.10 Cannabis abuse, uncomplicated 03/27/2019 Matt Ledesma Final F15.10 Other stimulant abuse, uncomplicated 03/27/2019 Matt Ledesma Final F17.210 Nicotine dependence, cigarettes, uncomplicated 03/27/2019 Matt Ledesma Final F41.9 Anxiety disorder, unspecified 03/27/2019 Matt Ledesma Final G89.29 Other chronic pain 03/27/2019 Matt Ledesma Final M25.572 Pain in left ankle and joints of left foot 03/27/2019 Matt Ledesma Reason R69 Illness, unspecified 03/27/2019 Matt Ledesma Final Z90.49 Acquired absence of other specified parts of digestive tract 03/27/2019 Matt Ledesma Final Z98.890 Other specified postprocedural states 03/29/2019 F F15.20 Other stimulant dependence, uncomplicated SaraviaPiedadmetrea L 03/29/2019 F F31.5 Bipolar disorder, current episode depressed, severe, with psychotic features Saravia Charmetrea L 03/29/2019 F F15.20 Other stimulant dependence, uncomplicated Psy, Batch 03/29/2019 F F31.5 Bipolar disorder, current episode depressed, severe, with psychotic features Psy, Batch 03/30/2019 F F15.20 Other stimulant dependence, uncomplicated Mike, Vira 03/30/2019 F F31.5 Bipolar disorder, current episode depressed, severe, with psychotic features Mike, Vira 04/02/2019 F F15.20 Other stimulant dependence, uncomplicated Psy, Batch 04/02/2019 F F31.5 Bipolar disorder, current episode depressed, severe, with psychotic features Psy, Batch 04/05/2019 F F15.20 Other stimulant dependence, uncomplicated Sakina, Emmaly S 04/05/2019 F F31.5 Bipolar disorder, current episode depressed, severe, with psychotic features Sakina, Emmaly S 04/05/2019 F F15.20 Other stimulant dependence, uncomplicated Psy, Batch 04/05/2019 F F31.5 Bipolar disorder, current episode depressed, severe, with psychotic features Psy, Batch 04/06/2019 F F15.20 Other stimulant dependence, uncomplicated Psy, Batch 04/06/2019 F F31.5 Bipolar disorder, current episode depressed, severe, with psychotic features Psy, Batch 04/10/2019 Enoc,Sherwin Final F12.10 Cannabis abuse, uncomplicated 04/10/2019 Stubbs Howard Reason F41.9 Anxiety disorder, unspecified 04/10/2019 Stubbs Howard Final Z79.891 residential (current) use of opiate analgesic 04/11/2019 Kavitha,Mirna Final F12.10 Cannabis abuse, uncomplicated 04/11/2019 Kavitha,Mirna Final F15.10 Other stimulant abuse, uncomplicated 04/11/2019 Kavitha,, Li Final F17.210 Nicotine dependence, cigarettes, uncomplicated 04/11/2019 Kavitha,Mirna Reason M79.671 Pain in right foot 04/11/2019 Kavitha,, Li Final Z90.49 Acquired absence of other specified parts of digestive tract 04/11/2019 Kavitha,, Li Final Z98.890 Other specified postprocedural states 04/12/2019 Tracie, Sayra A Final F12.10 Cannabis abuse, uncomplicated 04/12/2019 Tracie, Sayra A Final F15.10 Other stimulant abuse, uncomplicated 04/12/2019 TracieSayra english A Final F17.210 Nicotine dependence, cigarettes, uncomplicated 04/12/2019 Tracie, Sayra A Final F19.10 Other psychoactive substance abuse, uncomplicated 04/12/2019 Tracie, Sayra A Final F41.9 Anxiety disorder, unspecified 04/12/2019 TracieAbimael englishine A Reason F99 Mental disorder, not otherwise specified 04/12/2019 TracieSayra english A Final R45.851 Suicidal ideations 04/12/2019 TracieAbimaelSayra A Final Z90.49 Acquired absence of other specified parts of digestive tract 04/19/2019 F F15.20 Other stimulant dependence, uncomplicated Maxine Ayoub 04/19/2019 F F31.5 Bipolar disorder, current episode depressed, severe, with psychotic features Maxine Ayoub 04/19/2019 F F15.20 Other stimulant dependence, uncomplicated Maxine Ayoub 04/19/2019 F F31.5 Bipolar disorder, current episode depressed, severe, with psychotic features Maxine Ayoub 04/19/2019 F F15.20 Other stimulant dependence, uncomplicated Mega, Maxine 04/19/2019 F F31.5 Bipolar disorder, current episode depressed, severe, with psychotic features Maxine Ayoub 04/19/2019 F F15.20 Other stimulant dependence, uncomplicated Mega, Maxine 04/19/2019 F F31.5 Bipolar disorder, current episode depressed, severe, with psychotic features Maxine Ayoub 04/19/2019 F F15.20 Other stimulant dependence, uncomplicated Mega, Maxine 04/19/2019 F F31.5 Bipolar disorder, current episode depressed, severe, with psychotic features Maxine Ayoub 05/02/2019 Abu Rahul, Mingo Admitting F15.10 05/07/2019 [facility] Final D64.9 Anemia, unspecified 05/07/2019 Abu Rahul, [facility] Final F12.10 Cannabis abuse, uncomplicated 05/07/2019 Abu Rahul, [facility] Final F15.10 Other stimulant abuse, uncomplicated 05/07/2019 Abu Rahul, [facility] Final F17.210 Nicotine dependence, cigarettes, uncomplicated 05/07/2019 Abu Rahul, [facility] Final F20.9 Schizophrenia, unspecified 05/07/2019 Abu Rahul, [facility] Final F31.9 Bipolar disorder, unspecified 05/07/2019 Abu Rahul, [facility] Final F41.9 Anxiety disorder, unspecified 05/07/2019 Abu Rahul, [facility] Final F43.10 Post-traumatic stress disorder, unspecified 05/07/2019 Abu Rahul, [facility] Final F60.2 Antisocial personality disorder 05/07/2019 Abu Rahul, [facility] Final K59.00 Constipation, unspecified 05/07/2019 Abu Rahul, [facility] Final L03.113 Cellulitis of right upper limb 05/07/2019 Abu Rahul, [facility] Final Z90.49 Acquired absence of other specified parts of digestive tract 05/07/2019 Lucrecia Stewart Final Z91.5 Personal history of self-harm 05/07/2019 Lucrecia Stewart Final A41.9 Sepsis, unspecified organism 05/17/2019 Garrido Curt Final F41.9 Anxiety disorder, unspecified 05/17/2019 Garrido Curt Final I10 Essential (primary) hypertension 05/17/2019 Radhika,Ankur Final J45.909 Unspecified asthma, uncomplicated 05/17/2019 Radhika,Ankur Final K21.9 Gastro-esophageal reflux disease without esophagitis 05/17/2019 Radhika,Ankur Final M79.89 Other specified soft tissue disorders 05/17/2019 Garrido Curt Reason R51 Headache 06/06/2019 Gonzalez Mark Final F15.129 Other stimulant abuse with intoxication, unspecified 06/06/2019 Gonzalez Mark Reason F99 Mental disorder, not otherwise specified 06/06/2019 Gonzalez Mark Final R00.2 Palpitations 06/06/2019 Genevieve,Erick Final F15.10 Other stimulant abuse, uncomplicated 06/06/2019 Silex,Erick Final F17.210 Nicotine dependence, cigarettes, uncomplicated 06/06/2019 Genevieve,Erick Final F20.9 Schizophrenia, unspecified 06/06/2019 Silex,Erick Final F41.9 Anxiety disorder, unspecified 06/06/2019 Genevieve,Erick Reason R45.851 Suicidal ideations 06/06/2019 Genevieve,Erick Final Z53.21 Procedure and treatment not carried out due to patient leaving prior to surinder 06/06/2019 Genevieve,Erick Final 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 06/06/2019 Genevieve,Erick Final Z90.49 Acquired absence of other specified parts of digestive tract 06/06/2019 Gonzalez Mark Final F17.210 Nicotine dependence, cigarettes, uncomplicated 06/06/2019 Carlos,Landon Final F41.9 Anxiety disorder, unspecified 06/06/2019 Gonzalez Mark Final Z86.73 Personal history of transient ischemic attack (TIA), and cerebral infarctio 06/06/2019 Gonzalez Mark Final Z90.49 Acquired absence of other specified parts of digestive tract 06/06/2019 Gonzalez Mark Final Z98.890 Other specified postprocedural states 06/07/2019 F F15.20 Other stimulant dependence, uncomplicated Sakina, Emmaly S 06/07/2019 F F31.5 Bipolar disorder, current episode depressed, severe, with psychotic features Sakina, Emmaly S 06/07/2019 F F15.20 Other stimulant dependence, uncomplicated Psy, Batch 06/07/2019 F F31.5 Bipolar disorder, current episode depressed, severe, with psychotic features Psy, Batch 06/08/2019 F F15.20 Other stimulant dependence, uncomplicated Cockrill, Katty 06/08/2019 F F31.5 Bipolar disorder, current episode depressed, severe, with psychotic features Cockrill, Katty 06/09/2019 F F15.20 Other stimulant dependence, uncomplicated Kaila Shetty 06/09/2019 F F31.5 Bipolar disorder, current episode depressed, severe, with psychotic features Kaila Shetty Procedures Code Description Performed By Performed On H2011 Leopoldo Melendrez 08/06/2015 [id number] Yaquelin Zavala 04/08/2016 [id number] Yaquelin Zavala 04/08/2016 [id number] OFFICE/OUTPATIENT VISIT, Billy Jacobo 04/12/2016 [id number] OFFICE/OUTPATIENT VISIT, Billy Jacobo 04/12/2016 [id number] OFFICE/OUTPATIENT VISIT, Fariha Rey 05/06/2016 [id number] OFFICE/OUTPATIENT VISIT, Fariha Rey 05/06/2016 H2011 Robyn Nava 07/23/2016 H2011 Robyn Nava 07/23/2016 H2011 Kash Jeong 08/30/2016 H2011 Kash Jeong 08/30/2016 H2011 Tiffany Escalera 08/30/2016 H2011 Tiffany Escalera 08/30/2016 H2011 Phuong Casillas 09/01/2016 H2011 Phuong Casillas 09/01/2016 [id number] INITIAL HOSPITAL CARE Tarsha Navarrete 09/02/2016 [id number] HOSPITAL DISCHARGE DAY Tarsha Navarrete 09/02/2016 H2011 Long, Constance Denise 09/06/2016 H2011 Long, Constance Denise 09/06/2016 [id number] INITIAL HOSPITAL CARE Coyner, Tarsha English 09/11/2016 H2011 Charles, Lay 09/11/2016 [id number] SUBSEQUENT HOSPITAL CARE Coyner, Tarsha English 09/12/2016 [id number] SUBSEQUENT HOSPITAL CARE Coyner, Tarsha S 09/13/2016 [id number] HOSPITAL DISCHARGE DAY Coyner, Tarsha S 09/14/2016 H2011 Aime, Rosita A 09/17/2016 H2011 Aime, Rosita A 09/17/2016 H2011 [place], Bobbi 09/17/2016 H2011 [place], Bobbi 09/18/2016 H2011 Black, Pat 09/18/2016 H2011 Black, Pat 09/18/2016 H2011 [place], Venus 09/18/2016 H2011 [place], Venus 09/18/2016 H2011 Pulido, Peter L 09/19/2016 H2011 Pulido, Peter L 09/19/2016 H2011 Chevalier, Irma 09/19/2016 H2011 Chevalier, Irma 09/19/2016 H2011 Judd, Constance Denise 09/20/2016 H2011 Long, Constance Denise 09/20/2016 H2011 Vinny, Phuong Lois 09/21/2016 H2011 Vinny, Phuong Lois 09/21/2016 [id number] OFFICE/OUTPATIENT VISIT, RUSTAM Abel, Andie 09/21/2016 [id number] OFFICE/OUTPATIENT VISIT, Andie De Los Santos 09/21/2016 H2011 Chevalier, Irma 09/21/2016 H2011 Chevalier, Irma 09/21/2016 H2011 TjadenAdelfo 09/21/2016 H2011 Adelfo Lind 09/21/2016 H2011 Vinny, Phuong Abreu 09/22/2016 H2011 Freya Chacon 09/22/2016 H2011 Freya Chacon 09/22/2016 H2011 Paulette Jacobson 09/22/2016 H2011 Indira, Paulette Nunezaan 09/22/2016 H2011 Braden, Miya Antonette 09/22/2016 H2011 Braden, Miya Antonette 09/22/2016 H2011 Chevalier, Irma 09/23/2016 H2011 Chevalier, Irma 09/23/2016 H2011 Hart, Lynlee 10/02/2016 H2011 Hart, Lynlee 10/02/2016 H2011 Gleason, Peter 10/02/2016 H2011 Gleason, Peter 10/02/2016 H2011 Camp, Estefaníastephany Whitman 10/03/2016 H2011 Camp, Estefanía Antonette 10/03/2016 H2011 Chevalier, Irma 10/03/2016 H2011 Chevalier, Irma 10/03/2016 H2011 Chevalier, Irma 10/05/2016 H2011 Chevalier, Irma 10/05/2016 H2011 Jovan Llanes 10/05/2016 H2011 Jovan Llanes 10/05/2016 H2011 Sarah Jacobson 10/06/2016 [id number] OFFICE/OUTPATIENT VISIT, Debbie Rocha 10/06/2016 [id number] OFFICE/OUTPATIENT VISIT, Debbie Rocha 10/06/2016 H2011 Rosita Reddy S 10/06/2016 H2011 Barry, Rosita S 10/06/2016 H2011 Sarah Jacobson 10/06/2016 H2011 Phuong Casillas 10/11/2016 H2011 Phuong Casillas 10/11/2016 H2011 Orville Machado W 10/17/2016 H2011 lOrville W 10/17/2016 H2011 Jovan Llanes 10/17/2016 H2011 Jovan Llanes 10/17/2016 H2011 Freya Chacon 10/18/2016 H2011 Freya Chacon 10/18/2016 H2011 Manpreet Garcias 10/18/2016 H2011 Barry, Rosita S 10/18/2016 H2011 Barry, Rosita S 10/18/2016 H2011 Manpreet Garcias 10/18/2016 H2011 Gallardo, Og Hans 10/18/2016 H2011 Gallardo, Og Hans 10/19/2016 H2011 Renpedroet, Perlita Laila 10/19/2016 H2011 Renollet, Perlita Laila 10/19/2016 H2011 Hart, Reginoe 10/19/2016 H2011 Hart, Lynlee 10/19/2016 H2011 Galalrdo, Og Maxwell 10/19/2016 H2011 Gallardo, Og Maxwell 10/20/2016 H2011 Pulido, Peter L 11/08/2016 H2011 Pulido, Peter L 11/08/2016 H2011 Hollimon, Constance 11/10/2016 H2011 Hollimon, Constance 11/10/2016 [id number] INITIAL HOSPITAL CARE Coyner, Tarsha S 11/11/2016 [id number] SUBSEQUENT HOSPITAL CARE Coyner, Tarsha S 11/12/2016 [id number] SUBSEQUENT HOSPITAL CARE Coyner, Tarsha S 11/13/2016 [id number] HOSPITAL DISCHARGE DAY Coyner, Tarsha S 11/14/2016 H2011 Hart, Carolee 11/17/2016 H2011 Hart, Carolee 11/17/2016 [id number] OFFICE/OUTPATIENT VISIT, Fariha Rey 01/23/2017 [id number] OFFICE/OUTPATIENT VISIT, Fariha Rey 01/23/2017 H2011 Robyn Nava 02/21/2017 H2011 Crisis Intervention - Advanced Robyn Nava 02/21/2017 H2011 Crisis Intervention - Basic Carmella Smith 02/22/2017 H2011 Domenico Mohan 02/22/2017 H2011 Crisis Intervention - Basic Domenico Mohan 02/22/2017 [id number] OFFICE/OUTPATIENT VISIT, Debbie Rocha 02/22/2017 H2011 Freya Chacon 02/22/2017 H2011 Kourtney Aldridge 02/22/2017 H2011 Crisis Intervention - Advanced Kourtney Aldridge 02/22/2017 H2011 Crisis Intervention - Basic Freya Chacon 02/22/2017 H2011 Crisis Intervention - Advanced Peter Pulido 04/20/2017 H2011 Crisis Intervention - Advanced Ashok Peter John 04/20/2017 H2011 Crisis Intervention - Basic Olya Ferro 04/20/2017 [id number] OFFICE/OUTPATIENT VISIT, Debbie Rocha 04/20/2017 [id number] OFFICE/OUTPATIENT VISIT, Debbie Rocha 04/20/2017 H2011 Crisis Intervention - Basic Olya Ferro 04/20/2017 H2011 Crisis Intervention - Advanced Vinny Phuong Lois 04/20/2017 H201 Crisis Intervention - Advanced Phuong Casillas 04/20/2017 H201 Crisis Intervention - Advanced Maribel Cunningham 04/21/2017 H201 Crisis Intervention - Advanced Maribel Cunningham 04/21/2017 H2011 Crisis Intervention - Advanced Jl Dixie Roselia 04/22/2017 H201 Crisis Intervention - Advanced Jl Dixie Roselia 04/22/2017 H201 Crisis Intervention - Advanced Mellissa Bhandari 05/09/2017 H2011 Crisis Evaluation - Televideo Estefanía Rosado 05/17/2017 [id number] OFFICE/OUTPATIENT VISIT, Fariha Rey Lorena 05/18/2017 [id number] OFFICE/OUTPATIENT VISIT, Amador Reyia Lorena 05/18/2017 [id number] INITIAL HOSPITAL CARE Coyner, Tarsha S 05/19/2017 [id number] SUBSEQUENT HOSPITAL CARE Coyner, Tarsha S 05/20/2017 [id number] SUBSEQUENT HOSPITAL CARE Coyner, Tarsha S 05/21/2017 [id number] HOSPITAL DISCHARGE DAY Coyner, Tarsha S 05/22/2017 [id number] INITIAL HOSPITAL CARE Coyner, Tarsha S 10/28/2017 [id number] SUBSEQUENT HOSPITAL CARE Coyner, Tarsha S 10/29/2017 [id number] SUBSEQUENT HOSPITAL CARE Coyner, Tarsha S 10/30/2017 [id number] HOSPITAL DISCHARGE DAY Coyner, Tarsha S 10/31/2017 [id number] Admission Intake Padmaja, Talli 11/21/2018 [id number] Admission Intake Padmaja, Talli 11/21/2018 H201 Crisis Intervention - Advanced Robyn Fairchild 11/21/2018 H2 Crisis Intervention - Intermediate Shikha James 11/21/2018 H201 Crisis Intervention - Advanced Robyn Fairchild 11/21/2018 H201 Crisis Intervention - Basic Ayden Jean 11/22/2018 H2011 Crisis Intervention - Intermediate Ricktameka, Shikha 11/22/2018 H201 Crisis Intervention - Basic Jean, Ayden Alvaro 11/22/2018 [id number] OFFICE/OUTPATIENT VISIT, Titi Rochaa C 11/22/2018 H201 Crisis Intervention - Basic Bray Ammallory, Yordano 11/22/2018 [id number] OFFICE/OUTPATIENT VISIT, RUSTAM Debbie Agarwal C 11/22/2018 H201 Crisis Intervention - Basic Jovan Llanes 11/22/2018 H201 Crisis Intervention - Basic Jovan Llanes 11/22/2018 H201 Crisis Intervention - Advanced Kourtney Aldridge 11/22/2018 H2 Crisis Intervention - Advanced Kourtney Aldridge 11/22/2018 H2 Crisis Evaluation - TelevLing Jimenez 11/28/2018 H201 Crisis Intervention - Basic Asa Oneill, Yordano 11/28/2018 H2011 Crisis Intervention - Basic Victorino, Peter 11/28/2018 H201 Crisis Intervention - Basic Lamin Thao 11/29/2018 H201 Crisis Intervention - Basic Victorino, Peter 11/29/2018 H201 Crisis Intervention - Basic Asa Oneill, Yordano 11/29/2018 [id number] OFFICE/OUTPATIENT VISIT, EST Agarwal Debbie C 11/29/2018 [id number] OFFICE/OUTPATIENT VISIT, EST AgarwalTiti louisea C 11/29/2018 H2011 Crisis Intervention - Advanced Garland Calvin 11/29/2018 H201 Crisis Intervention - Advanced Garland, Calvin 11/29/2018 H2011 Crisis Intervention - Basic Marixa Alvarenga 11/29/2018 H201 Crisis Intervention - Basic Marixa Alvarenga 11/29/2018 H2011 Crisis Intervention - Basic Jovan Llanes 11/29/2018 H201 Crisis Intervention - Basic Ciaran Loja 11/30/2018 H201 Crisis Intervention - Basic Juan Manuel Headley 11/30/2018 H2 Crisis Intervention - Basic Ciaran Loja 11/30/2018 H201 Crisis Intervention - Basic Orville Gaytan 11/30/2018 H2011 Crisis Intervention - Advanced Maribel Cunningham 11/30/2018 H2011 Crisis Intervention - Advanced Maribel Cunningham 11/30/2018 H2011 Crisis Intervention - Basic Lukas, Orville Pollack 11/30/2018 H201 Crisis Intervention - Basic Gaytan, Orville Pollack 11/30/2018 H201 Crisis Intervention - Basic Lukas, Orville Pollack 12/01/2018 H201 Crisis Intervention - Advanced Maia Marquez 12/01/2018 H201 Crisis Intervention - Advanced Maia Marquez 12/01/2018 H2011 Crisis Intervention - Basic Gaytan, Orville Pollack 12/01/2018 H2011 Crisis Intervention - Advanced Camp, Estefanía Whitman 03/04/2019 H201 Crisis Intervention - Advanced Camp, Estefanía Whitman 03/04/2019 H2 Crisis Intervention - Advanced Thao, Lacy K 03/04/2019 H201 Crisis Intervention - Advanced Thao, Lacy K 03/04/2019 [id number] INITIAL HOSPITAL CARE Coyner, Tarsha S 03/06/2019 [id number] SUBSEQUENT HOSPITAL CARE Coyner, Tarsha S 03/07/2019 [id number] HOSPITAL DISCHARGE DAY Coyner, Tarsha S 03/08/2019 H2011 Crisis Intervention - Advanced Saravia, Charmetrea L 03/29/2019 H2011 Crisis Intervention - Advanced Saravia, Charmetrea L 03/29/2019 H2011 Crisis Intervention - Advanced Mike, Vira 03/30/2019 H2011 Crisis Intervention - Advanced Mike, Vira 03/30/2019 H2011 Crisis Intervention - Advanced Sakina, Emmaly S 04/05/2019 H2011 Crisis Intervention - Advanced Sakina, Emmaly S 04/05/2019 H2011 Crisis Intervention - Advanced Rosita Salomon 04/06/2019 [id number] INITIAL HOSPITAL CARE Coyner, Tarsha S 04/11/2019 [id number] SUBSEQUENT HOSPITAL CARE Coyner, Tarsha S 04/12/2019 [id number] SUBSEQUENT HOSPITAL CARE Coyner, Tarsha S 04/13/2019 [id number] SUBSEQUENT HOSPITAL CARE Coyner, Tarsha S 04/14/2019 [id number] HOSPITAL DISCHARGE DAY Coyner, Tarsha S 04/15/2019 [id number] Drainage of Right Upper Extremity, Open Approach 05/03/2019 H2011 Crisis Intervention - Advanced Sakina, Emmaly S 06/07/2019 H2011 Crisis Intervention - Advanced Anayeli Presley 06/07/2019 H2011 Crisis Intervention - Advanced Katty Carranza 06/08/2019 H2 Crisis Intervention - Advanced Kaila Shetty 06/09/2019 Results Test Result Range UR DRUGS OF ABUSE SCREEN - 10/16/17 11:30 *COCAINE NEGATIVE ng/mL NEG <150 *BARBITURATES NEGATIVE ng/mL NEG <200 *BENZODIAZEINE NEGATIVE ng/mL NEG <200 *AMPHETAMINE NEGATIVE ng/mL NEG <500 *CANNABINOIDS NEGATIVE NEG <50 *OPIATES NEGATIVE ng/mL NEG <300 *PCP NEGATIVE ng/mL NEG <25 CBC WITH PLATELET AND DIFFERENTIAL - 10/16/17 11:46 SEGS 67.9 % NRG *BASOPHILS 1.2 % NRG *EOSINOPHILS 2.9 % NRG AUTOMATED DIFF PERFORMED NRG *LYMPHOCYTES 21.8 % NRG *MONOCYTES 6.2 % NRG *ABSOLUTE BASOPHILS 0.10 10*3/uL 0.00-0.20 *ABSOLUTE EOSINOPHILS 0.20 10*3/uL 0.00-0.50 *ABSOLUTE LYMPHOCYTES 1.30 10*3/uL 1.00-3.00 *ABSOLUTE MONOCYTES 0.40 10*3/uL 0.30-1.00 *ABSOLUTE NEUTROPHILS 4.10 10*3/uL 1.80-7.80 MPV 8.2 fL 7.4-10.4 PLATELETS 222 10*3/uL 159-386 WBC 6.0 10*3/uL 3.6-11.2 RBC 4.76 4.06-5.63 HEMOGLOBIN 14.2 12.5-16.3 HEMATOCRIT 42.6 % 36.7-47.1 MCV 89.4 fL 80.0-100.0 MCH 29.9 pg 27.0-33.0 MCHC 33.4 32.0-36.0 RDW 14.7 % 12.3-17.0 RDWSD 45.9 37.1-47.8 COMPREHENSIVE METABOLIC PANEL - 10/16/17 11:46 BILIFUBIN TOTAL 0.30 0.20-1.00 TOTAL PROTEIN 7.0 6.4-8.2 ALBUMIN 3.4 3.4-5.0 *GLOBULIN 3.6 2.3-3.5 *A/G RATIO 0.9 1.5-2.2 ALK PHOS 102 U/L 46-116 ALT (SGPT) 31 U/L 14-59 AST (SGOT) 22 U/L 15-37 GFR ESTIMATION - 10/16/17 11:46 *GFR EST NON AFR ALGERIAN >90 mL/min NRG *GRFA EST AFR AMER >90 mL/min NRG TSH - 10/16/17 11:46 TSH 0.642 u[IU]/L 0.340-4.820 DRUG SCREEN PLASMA - 10/16/17 11:46 ALCOHOL <0.003 NRG ACETAMINOPHEN <2 10-30 SALICYLATE 3.1 2.8-20.0 GLUCOSE (FASTING) - 10/17/17 06:48 GLUCOSE (FASTING) 119 65-99 Urine Drug Screen - 10/27/17 12:58 Tricyclics Not Detected NA Troponin NPT - 10/27/17 13:02 Troponin NPT Negative NA Chem 8 NPT - 10/27/17 13:04 Anion Gap 12 mEq/L 3-20 BUN Venous 9 mg/dl 4-20 Calcium Ionized Venous 1.14 mmol/L 1.19-1.41 Creatinine Venous 0.7 mg/dL 0.7-1.2 Glucose Venous 101 mg/dL 70-100 Potassium, WB 4.3 mEq/L 3.6-5.1 Sodium Venous 140 mEq/L 136-144 Total CO2 Venous 26 mEq/L 25-29 Venous CL 102 mEq/L 99-109 HCT Venous 47.0 % 42.0-52.0 HGB Venous NPT 16.0 g/dL 14.0-16.0 CBC WITH PLATELET AND DIFFERENTIAL - 01/16/18 08:37 SEGS 72.8 % NRG *BASOPHILS 0.9 % NRG *EOSINOPHILS 2.3 % NRG AUTOMATED DIFF PERFORMED NRG *LYMPHOCYTES 18.2 % NRG *MONOCYTES 5.8 % NRG *ABSOLUTE BASOPHILS 0.10 10*3/uL 0.00-0.20 *ABSOLUTE EOSINOPHILS 0.20 10*3/uL 0.00-0.50 *ABSOLUTE LYMPHOCYTES 1.70 10*3/uL 1.00-3.00 *ABSOLUTE MONOCYTES 0.50 10*3/uL 0.30-1.00 *ABSOLUTE NEUTROPHILS 6.90 10*3/uL 1.80-7.80 MPV 8.6 fL 7.4-10.4 PLATELETS 249 10*3/uL 159-386 WBC 9.4 10*3/uL 3.6-11.2 RBC 4.99 4.06-5.63 HEMOGLOBIN 14.8 12.5-16.3 HEMATOCRIT 44.6 % 36.7-47.1 MCV 89.4 fL 80.0-100.0 MCH 29.6 pg 27.0-33.0 MCHC 33.1 32.0-36.0 RDW 14.2 % 12.3-17.0 RDWSD 44.6 37.1-47.8 COMPREHENSIVE METABOLIC PANEL - 01/16/18 08:37 BILIFUBIN TOTAL 0.40 0.20-1.00 TOTAL PROTEIN 7.3 6.4-8.2 ALBUMIN 3.4 3.4-5.0 *GLOBULIN 3.9 2.3-3.5 *A/G RATIO 0.9 1.5-2.2 ALK PHOS 109 U/L 46-116 ALT (SGPT) 17 U/L 14-59 AST (SGOT) 14 U/L 15-37 GFR ESTIMATION - 01/16/18 08:37 *GFR EST NON AFR ALGERIAN >90 mL/min NRG *GRFA EST AFR AMER >90 mL/min NRG TSH - 01/16/18 08:37 TSH 0.482 u[IU]/L 0.340-4.820 DRUG SCREEN PLASMA - 01/16/18 08:37 ALCOHOL 0.000 NRG ACETAMINOPHEN <2 10-30 SALICYLATE 4.0 2.8-20.0 URINALYSIS (CULTURE PRN) - 01/16/18 08:50 *URINE APPEARANCE CLEAR CLEAR *URINE BILIRUBIN NEGATIVE NEGATIVE *URINE BLOOD NEGATIVE NEGATIVE *URINE GLUCOSE NEGATIVE NEGATIVE *URINE KETONES NEGATIVE NEGATIVE *URINE LEUKOCYTES NEGATIVE NEGATIVE *URINE NITRITES NEGATIVE NEGATIVE URINE PH 6.0 5.0-8.0 *URINE PROTEIN NEGATIVE NEGATIVE URINE SPECIFIC GRAVITY 1.025 <=1.005->=1.030 *URINE UROBILINOGEN 0.2 0.2-1.0 *URINE COLOR YELLOW STRAW/YELL/DK YELL UR DRUGS OF ABUSE SCREEN - 01/16/18 08:50 *COCAINE NEGATIVE ng/mL NEG <150 *BARBITURATES NEGATIVE ng/mL NEG <200 *BENZODIAZEINE NEGATIVE ng/mL NEG <200 *AMPHETAMINE POSITIVE ng/mL NEG <500 *CANNABINOIDS NEGATIVE NEG <50 *OPIATES NEGATIVE ng/mL NEG <300 *PCP NEGATIVE ng/mL NEG <25 GLUCOSE (FASTING) - 01/17/18 06:17 GLUCOSE (FASTING) 107 65-99 Chem 8 NPT - 11/11/18 20:04 Anion Gap 12 mEq/L 3-20 BUN Venous 10 mg/dl 4-20 Calcium Ionized Venous 1.14 mmol/L 1.19-1.41 Creatinine Venous 0.8 mg/dL 0.7-1.2 Glucose Venous 98 mg/dL 70-100 Potassium, WB 3.7 mEq/L 3.6-5.1 Sodium Venous 138 mEq/L 136-144 Total CO2 Venous 26 mEq/L 25-29 Venous CL 100 mEq/L 99-109 HCT Venous 44.0 % 42.0-52.0 HGB Venous NPT 15.0 g/dL 14.0-18.0 CBC With Platelet and Differential - 11/28/18 08:00 Absolute Basophils 0.01 10*3/uL 0.00-0.20 Absolute Eosinophils 0.19 10*3/uL 0.00-0.50 Absolute Lymphocytes 1.09 10*3/uL 0.80-3.30 Absolute Monocytes 0.27 10*3/uL 0.30-1.00 Absolute Neutrophils 4.68 10*3/uL 1.90-7.00 Basophils 0 % 0-2 Eosinophils 3 % 0-4 HCT 38.8 % 42.0-52.0 HGB 12.9 g/dL 14.0-18.0 Immature Granulocytes 0.2 % 0.0-1.0 Lymphocytes 17 % 20-46 MCH 30.0 pg 27.0-32.0 MCHC 33.2 g/dL 32.0-36.0 MCV 90.2 fL 82.0-99.0 Monocytes 4 % 4-11 MPV 9.6 fL 9.4-12.3 Neutrophils 75 % 51-75 Nucleated RBC Automated 0.0 /100 WBC Platelet Count 233 K/uL 150-400 RBC 4.30 10*6/uL 4.60-6.20 RDW 14.3 % 11.5-14.5 WBC 6.2 K/uL 4.8-10.8 Comprehensive Metabolic Panel (CMP) - 11/28/18 08:00 Albumin 3.1 g/dL 3.5-4.8 Alkaline Phosphatase 73 U/L 26-104 ALT (SGPT) 21 U/L 17-63 Anion Gap 10 mEq/L 3-20 AST (SGOT) 23 U/L 15-41 Bilirubin Total 0.7 mg/dL 0.2-1.2 BUN 13 mg/dL 4-20 Calcium 8.4 mg/dL 8.6-10.0 Chloride 102 mEq/L 99-109 CO2 24 mEq/L 22-32 Creatinine 0.67 mg/dL 0.64-1.27 Globulin 3.2 g/dL 1.9-4.3 Glucose 110 mg/dL 70-100 Potassium 3.4 mEq/L 3.6-5.1 Protein 6.3 g/dL 6.1-7.9 Sodium 136 mEq/L 136-144 Alcohol, Blood - 11/28/18 08:00 Alcohol, Blood Not Detected mg/dL eGFR - 11/28/18 08:00 eGFR >60 mL/min >60 TSH with Reflex Free T4 - 11/28/18 08:00 TSH with Reflex Free T4 0.84 uIU/mL 0.35-5.50 UA with screen for culture - 02/27/19 15:35 URINE CULTURE Not Indicated NRG URINE MICROSCOPIC REQUIRED No NRG Color Ur Auto LIGHT YELLOW Yellow Clarity Ur Refract.auto Clear Clear Glucose Ur Strip.auto-mCnc Negative Negative Bilirub Ur Strip.auto-mCnc Negative Negative Ketones Ur Strip.auto-mCnc Negative Negative Sp Gr Ur Refract.auto =1.017 1.001-1.035 Hgb Ur Strip.auto-mCnc Negative Negative pH Ur Strip.auto =7.0 5.0-9.0 Prot Ur Strip.auto-mCnc Negative <20 Urobilinogen Ur Strip.auto-mCnc 0.2 0.2-1.0 Nitrite Ur Ql Strip Negative Negative Leukocyte esterase Ur-aCnc Negative Negative Urine drug screen - 02/27/19 15:35 Opiate Screen Negative Negative Barbiturate Screen Negative Negative Amphetamine Screen Negative Negative Benzodiazepine Screen Negative Negative Cocaine Screen Negative Negative Cannabinoid Screen Negative Negative Complete Blood Count no Diff - 02/27/19 15:44 WBC # Bld Auto =9.4 4.0-11.0 RBC # Bld Auto =4.93 4.50-5.90 Hgb Bld-mCnc =14.5 13.5-17.5 Hct VFr Bld Auto =43.4 41.0-53.0 MCV RBC Auto =88.0 80.0-100.0 MCH RBC Qn Auto =29.4 26.0-34.0 MCHC RBC Auto-mCnc =33.4 31.0-37.0 RDW RBC Auto-Rto =14.6 11.0-15.0 Platelet # Bld Auto =189 140-450 PMV Bld Auto =10.1 8.2-12.4 nRBC/100 WBC Bld Auto-Rto =0.0 0.0-0.0 nRBC # Bld Auto =0.0 0.0-0.0 Comprehensive Metabolic Panel - 02/27/19 15:44 OSMO CALCULATED =273.9 270.0-290.0 Sodium SerPl-sCnc =137 135-145 Potassium SerPl-sCnc =3.8 3.6-5.0 Chloride SerPl-sCnc =105 101-111 CO2 SerPl-sCnc =21 21-31 Anion Gap4 SerPl-sCnc =15 8-18 BUN SerPl-mCnc =13 6-20 Creat SerPl-mCnc =0.81 0.50-1.20 Creatinine Clr Calc Pharmacy =111.5295 NRG GFR/BSA.pred SerPl WKT-QFO-IcUSja >=60 >=60 BUN/Creat SerPl =16.0 10.0-20.0 Glucose SerPl-mCnc =97 70-110 Calcium SerPl-mCnc =9.2 8.5-10.5 Bilirub SerPl-mCnc =1.0 0.1-1.2 AST SerPl-cCnc =28 10-42 ALT SerPl w/o P-5'-P-cCnc =28 10-60 ALP SerPl-cCnc =93 42-121 Prot SerPl-mCnc =8.1 6.4-8.2 Albumin SerPl-mCnc =4.5 3.5-5.5 Globulin Ser Calc-mCnc =3.6 2.4-3.6 Albumin/Glob SerPl =1.3 0.9-1.8 APAP SerPl-mCnc - 02/27/19 15:44 APAP SerPl-mCnc <10.0 10-30 Salicylates SerPl-mCnc - 02/27/19 15:44 Salicylates SerPl-mCnc <4.0 4-29 ETOH Alcohol - 02/27/19 15:44 ALCOHOL % =0.005 0.005-0.008 Alcohol < 5.0 0.0-5.0 TSH SerPl-aCnc - 02/27/19 15:44 TSH SerPl-aCnc =2.880 0.450-5.330 Radiology Report from [id number] on 09/22/2016 07:23:00 Reason For ExamArthritis Ankle FootREPORTINDICATION: Injury. Prior injury with surgery.COMPARISON: NoneFINDINGS: 3 views of left ankle are obtained. There is chronic deformity fromold internally fixed traumatic changes of the distal tibia and fibula. Nounusual lucency reaction is seen about fixation plates and screws. There isnarrowing and considerable degenerative change of the tibiotalar joint withprominent talar spurring. No acute fracture or malalignment is suspected.IMPRESSION: Old posttraumatic and postoperative changes. Secondary fairlysevere degenerative changes of the tibiotalar joint. No acute osseousabnormality is suspected.Dictated on workstation:[id number] Line PRELIMINARY DICTATED BY: KAILA DANIELSONICTATED DT/TM: 09/22/2016 7:18 Radiology Report from [id number] on 09/25/2016 15:54:00 Reason For ExamCoughREPORTINDICATION: Cough.COMPARISON: None.EXAMINATION: Two views of the chest were obtained. Heart size is normal. Thepulmonary vessels appear unremarkable. There is no pneumothorax, mediastinalwidening or pleural fluid demonstrated. The lungs are clear.The osseous structures appear unremarkable.IMPRESSION: No acute abnormality is demonstrated.Dictated on workstation:[id number] Line PRELIMINARY DICTATED BY: KAILA DANIELSONICTATED DT/TM: 09/25/2016 3:50 Radiology Report from [id number] on 10/11/2016 13:58:00 Reason For ExamBack painREPORTEXAM: XR Spine Lumbosacral 2 or 3 ViewsINDICATION: Back painCOMPARISON: None.FINDINGS: There are 5 lumbar-type vertebral bodies. Vertebral body heights aremaintained. Normal alignment. No fractures. Minimal degenerative endplatechanges are most marked at T12-L1.IMPRESSION: Minimal degenerative endplate changes most marked at T12-L1.Remainder unremarkable.Dictated on workstation:[id number] Line PRELIMINARY DICTATED BY: ADI ESTRADA MDDICTATED DT/TM: 10/11/2016 1:51 Radiology Report from [id number] on 10/11/2016 14:12:00 Reason For ExamInjury, knee belowREPORTINDICATION: Left ankle injury. Pain.FINDINGS: Three views of the left ankle show changes of prior internal fixationof the distal tibia and fibula. There is narrowing of the ankle joint. Nofracture, dislocation or other acute bony abnormality is seen. There is nochange from 09/22/16.IMPRESSION: There are changes of previous surgery with no acute abnormalityseen. There are degenerative changes of the ankle joint which are stablecompared to the prior exam.Dictated on workstation:[id number] Line PRELIMINARY DICTATED BY: ROBERTO GIRALDO MDDICTATED DT/TM: 10/11/2016 2:07 Radiology Report from [id number] on 01/04/2017 16:49:00 Reason For ExamPain in joint, ankle/footREPORTEXAMINATION: Left ankle, 3 views.COMPARISON: October 11, 2016. September 22, 2016.HISTORY: 46-year-old male, left ankle pain.FINDINGS: There is sideplate and screw fixation hardware along the distalfibula traversing across the previously noted distal fibular fracture. Thehardware appears intact. Unchanged overall appearance of the previous distalfibular diaphyseal fracture above the level the tibial plafond. There is alsosideplate and screw fixation hardware along the anterior aspect of the distaltibia without identified interval complication. Stable mild appearing deformityof the distal tibia. There is soft tissue swelling adjacent to the medial andlateral malleoli. There is severe tibiotalar joint space loss with anterior andposterior osteophytes. There is a predominantly linear oriented lucency in thecalcaneus which may relate to sequela of prior hardware.IMPRESSION:1. End-stage tibiotalar degenerative changes.2. No identified complication associated with the hardware in the distal fibulaand distal tibia with stable deformities of the distal tibia and fibula.Dictated on workstation:[id number] Line PRELIMINARY DICTATED BY: YUE COLON MDDICTATED DT/TM: 01/04/2017 4:42 Radiology Report from [id number] on 10/27/2017 13:13:00 Reason For ExamChest painREPORTINDICATION: Chest painCOMPARISON STUDY: Chest from 09/25/2016.FINDINGS:Frontal view of the chest demonstrates the lungs to be clear. The heart,mediastinum, pulmonary vascularity and visualized bony thorax are normal.IMPRESSION:Negative chest.Dictated on workstation:[id number] Line PRELIMINARY DICTATED BY: DAHIANA PAUL MDDICTATED DT/TM: 10/27/2017 1:09 Radiology Report from [id number] on 10/27/2017 14:12:00 Reason For Examworsening headache; hearing voiciesREPORTINDICATION: Worsening headache. Auditory hallucinationsTECHNIQUE: Routine non contrast-enhanced axial images were obtained from theskull base to the vertex.COMPARISON: None.FINDINGS: The ventricles and cortical sulci are normal in size and contour.There is no midline shift or mass-effect. No acute intra-axial hemorrhage isseen. There are no abn ormal areas of increased or decreased density to suggestacute hemorrhage or edema. No extra-axial masses or collections are present. Thebony calvarium is intact. The visualized paranasal sinuses are unremarkable. Themastoid air cells are clear.IMPRESSION:1. No acute intracranial abnormality. No CT evidence of mass, acute infarct orintracranial hemorrhage.Dictated on workstation:[id number] Line PRELIMINARY DICTATED BY: LETHA NAVA MDDICTATED DT/TM: 10/27/2017 2:08 Radiology Report from [id number] on 03/14/2019 05:43:00 Reason For ExamSwelling ankleREPORTINDICATION: Ankle pain. Previous injury.COMPARISON: 09/22/2016FINDINGS: 3 radiographic views of left ankle were obtained. Postsurgical changesof previous distal tibial and fibular ORIF are identified. Hardware is in stableposition. Since the previous exam from 2016, there has been significant intervalprogression of osteoarthritic changes to the tibiotalar joint space. Joint spaceis now essentially obscured. Hypertrophic bone formation is noted about thejoint. No definite acute fracture is seen. There is moderate diffuse soft tissueswelling.IMPRESSION:1. No definite acute fracture or dislocation of the left ankle.2. Significant interval progression of advanced osteoarthritic changes to thetibiotalar joint space.3. Moderate soft tissue swelling.Dictated on workstation:[id number] Line PRELIMINARY DICTATED BY: LETHA NAVA MDDICTATED DT/TM: 03/14/2019 5:37 Radiology Report from [id number] on 05/02/2019 23:19:00 Reason For ExamOther, (Free text in Reason for Exam field)REPORTPATIENT HISTORY: Pain and swelling for two days. History of IV drug use.TECHNIQUE: Axial CT of the right arm was performed from the shoulder to the handfollowing intravenous administration of contrast.COMPARISON: None.FINDINGS: No acute osseous abnormality is seen in the right upper extremity. Nocortical erosions are seen.No focal muscular atrophy is seen in the right upper extremity. There is markededema in the superficial fascia and subcutaneous fat of the right arm at theanterior aspect of the elbow. This edema appears to extend deep into the deepfascia as well as the anterior musculature about the elbow. No soft tissue gasis seen. No rim-enhancing fluid collection is seen. No metal foreign body isseen.IMPRESSION: Marked superficial and deep soft tissue edema at the anterior aspectof the right elbow, with no rim-enhancing fluid collection seen. No soft tissueair is seen. No metal foreign body is identified.Tech Comments: IV Contr ast Name: OMNIPAQUE 300Contrast amount in ml's: 80.000Dictated on workstation:[id number] Line FINAL DICTATED BY: GENEVIEVE HENSLEY MDDICTATED DT/TM: 05/02/2019 8:30 PMSIGNED BY: GENEVIEVE HENSLEY MDSIGNED (ELECTRONIC SIGNATURE): 05/02/2019 10:08 PMTECHNOLOGIST: LISETTE, LAMIN F ARRT Encounters ACCT No. Visit Date/Time Discharge Status Pt. Type Provider Facility Loc./Unit Complaint [id number] 06/09/2019 14:45:00 ACT Outpatient [id number] 06/07/2019 08:09:00 06/07/2019 16:00:00 DIS Emergency TjDavid [facility] ED Meth intox [id number] 06/02/2019 08:32:00 06/02/2019 09:59:00 DIS Emergency Vallejo David [facility] ED anxiety, SI, foot pain [id number] 06/02/2019 02:33:00 06/02/2019 04:24:00 DIS Emergency Gonzalez Mark [facility] ED Anxiety, Depression, afraid for life [id number] 05/14/2019 18:36:00 05/14/2019 21:25:00 DIS Emergency Garrido Curt [facility] ED MOJICA [id number] 05/02/2019 17:36:00 05/05/2019 14:57:00 DIS Inpatient Abu RahulMingoah [facility] F8SW Meth Abuse, Sepsis [id number] 04/06/2019 04:54:00 04/07/2019 13:28:00 DIS Emergency Sayra Hodges [facility] ED psych [id number] 04/05/2019 23:28:00 04/06/2019 01:09:00 DIS Emergency Plummer Li [facility] ED Bilat foot pain/Anxiety [id number] 04/05/2019 16:52:00 04/05/2019 17:48:00 DIS Emergency Stubbs Howard [facility] ED anxiety [id number] 03/14/2019 04:13:00 03/14/2019 07:07:00 DIS Emergency Matt Ledesma [facility] ED L - ankle pain [id number] 03/04/2019 18:45:00 03/04/2019 23:59:59 CLS Emergency Morris Michael [facility] ED OD [id number] 11/28/2018 07:12:00 11/28/2018 09:13:00 DIS Emergency Arboleda Matthew [facility] ED si [id number] 11/11/2018 17:42:00 11/11/2018 20:42:00 DIS Emergency JenifferTawanna Stefano [facility] ED not feeling right [id number] 11/11/2018 13:37:00 11/11/2018 15:14:00 DIS Emergency Arboleda Matthew [facility] ED general med [id number] 10/27/2017 11:57:00 10/27/2017 23:59:59 CLS Emergency Stubbs Howard [facility] on [facility] ED hearing voices [id number] 02/20/2017 20:03:00 02/21/2017 00:55:00 DIS Emergency Stubbs Howard [facility] on [facility] ED swollen L ankle [id number] 01/04/2017 15:56:00 01/04/2017 16:55:00 DIS Emergency Stubbs Howard [facility] on [facility] ED left ankle swollen [id number] 11/10/2016 18:49:00 11/10/2016 23:59:59 CLS Emergency Gonzalez Mark [facility] ED psych eval [id number] 10/11/2016 11:59:00 10/11/2016 15:10:00 DIS Emergency Stubbs Howard [facility] on [facility] ED left leg pain, back pain [id number] 10/11/2016 03:02:00 10/11/2016 03:48:00 DIS Emergency Stubbs Howard [facility] on [facility] ED anxiety [id number] 10/03/2016 22:21:00 10/03/2016 23:59:59 CLS Emergency Unger Nelson [facility] ED eval [id number] 10/02/2016 22:29:00 10/02/2016 23:24:00 DIS Emergency Stubbs Howard [facility] ED swollen foot [id number] 09/25/2016 14:57:00 09/25/2016 16:19:00 DIS Emergency Zina Salinas Aditya [facility] ED rib pain [id number] 09/23/2016 16:17:00 09/23/2016 17:15:00 DIS Emergency Stubbs Howard [facility] ED anxiety [id number] 09/22/2016 21:11:00 09/22/2016 22:22:00 DIS Emergency Stubbs Howard [facility] on [facility] ED anxiety, depression [id number] 09/21/2016 22:53:00 09/21/2016 23:59:59 CLS Emergency ShakiraclevelandnichelleAnkur [facility] ED EVAL [id number] 09/21/2016 03:48:00 09/21/2016 05:26:00 DIS Emergency Cox Denise [facility] ED Dyspnea, anxiety [id number] 09/10/2016 20:54:00 09/10/2016 23:59:59 CLS Emergency PatricUrsula [facility] on [facility] ED anxiety [id number] 09/01/2016 14:40:00 09/01/2016 23:59:59 CLS Emergency GabyJohn [facility] on [facility] ED assessment [id number] 09/10/2015 03:14:00 09/10/2015 04:55:00 DIS Emergency Alli Dutta [facility] on [facility] ED neck swollen, l ear pain [id number] 06/08/2019 05:19:37 Document Registration [id number] 06/03/2019 05:16:42 Document Registration [id number] 05/06/2019 05:16:12 Document Registration [id number] 05/04/2019 05:18:14 Document Registration [id number] 05/03/2019 05:18:33 Document Registration [id number] 04/16/2019 05:19:41 Document Registration [id number] 04/11/2019 05:18:12 Document Registration [id number] 04/10/2019 02:48:00 ACT Inpatient CoynerTarsha [facility] Depression [id number] 04/08/2019 05:17:00 Document Registration [id number] 04/07/2019 05:17:00 Document Registration [id number] 03/09/2019 05:20:22 Document Registration [id number] 03/07/2019 05:19:39 Document Registration [id number] 03/06/2019 05:18:41 Document Registration [id number] 11/29/2018 05:18:59 Document Registration [id number] 01/05/2017 05:16:47 Document Registration [id number] 11/14/2016 05:15:41 Document Registration [id number] 11/12/2016 05:16:57 Document Registration [id number] 11/11/2016 05:16:43 Document Registration [id number] 10/12/2016 05:17:02 Document Registration [id number] 10/11/2016 05:16:59 Document Registration [id number] 10/03/2016 05:16:00 Document Registration [id number] 09/26/2016 05:16:11 Document Registration [id number] 09/23/2016 05:17:28 Document Registration [id number] 09/22/2016 05:17:38 Document Registration [id number] 09/15/2016 05:18:18 Document Registration [id number] 09/12/2016 05:16:16 Document Registration [id number] 09/11/2016 05:16:26 Document Registration [id number] 09/02/2016 05:17:28 Document Registration [id number] 09/11/2015 05:17:39 Document Registration [id number] 02/27/2019 15:31:00 02/27/2019 21:12:00 DIS Outpatient [place], [place] [address].[facility] [id number] 08/14/2018 16:08:00 Document Registration [id number] 01/16/2018 10:09:00 01/18/2018 16:24:11 DIS Inpatient MAYANK PARMAR <PV2.3.2>Bipolar disorder, unspecified</PV2.3.2><PV2.3.2>CRISIS</PV2.3.2><PV2.3.2>UNSPECIFIED DEPRESSIVE D/IO</PV2.3.2><PV2.3.2>Bipolar disorder, unspecified&lt ;/PV2.3.2><PV2.3.2>Suicidal ideations</PV2.3.2><PV2.3.2>Other stimulant dependence, uncomplicated</PV2.3.2><PV2.3.2>Nicotine dependence, cigarettes, uncomplicated</PV2.3.2><PV2.3.2>Anxiety disorder, unspecified</PV2.3.2><PV2.3.2>Acquired absence of other specified parts of digestive tract</PV2.3.2> [id number] 01/10/2018 00:31:00 01/10/2018 23:59:59 CLS Emergency MANJU TEJADA <PV2.3.2>Unspecified injury of left ankle, initial encounter</PV2.3.2><PV2.3.2>LT LEG PAIN</PV2.3.2><PV2.3.2>Pain in left ankle</PV2.3.2><PV2.3.2>Other specified injuries of left ankle, initial encounter</PV2.3.2><PV2.3.2>Striking against other stationary object, initial encounter</PV2.3.2><PV2.3.2>Nicotine dependence, cigarettes, uncomplicated</PV2.3.2> [id number] 10/16/2017 13:58:00 10/18/2017 12:37:45 DIS Inpatient DESI ZAVALA <PV2.3.2>Bipolar disorder, unspecified</PV2.3.2><PV2.3.2>UNSPECIFIED BIPOLAR</PV2.3.2><PV2.3.2>Bipolar disorder, unspecified</PV2.3.2><PV2.3.2>Other stimulant dependence, uncomplicated</PV2.3.2><PV2.3.2>Suicidal ideations</PV2.3.2><PV2.3.2>Gastro- esophageal reflux disease without esophagitis</PV2.3.2><PV2.3.2>Nicotine depend ence, cigarettes, uncomplicated</PV2.3.2> [id number] 06/03/2015 04:44:00 06/03/2015 07:35:33 DIS Emergency GALINA MITCHELL [id number] 05/14/2015 21:25:00 05/15/2015 01:36:41 DIS Emergency GALINA MITCHELL [id number] 03/03/2019 03:55:00 Document Registration
[2019-06-11] MEDS ORDERED: OLANZapine 5 MG ODT (ZyPREXA ZYDIS) PO ONE (19:15)
[2019-06-11 19:16] LABS: BASOPHILS % (AUTO) 0 % (0-10); EOSINOPHILS # (AUTO) 0.3 10^3/uL (0.0-0.3); EOSINOPHILS % (AUTO) 3 % (0-10); HEMATOCRIT 40 % (40-54); HEMOGLOBIN 13.1 G/DL (13.3-17.7); LYMPHOCYTES # (AUTO) 1.5 X 10^3 (1.0-4.0); LYMPHOCYTES % (AUTO) 19 % (12-44); MEAN CORPUSCULAR HEMOGLOBIN 29 PG (25-34); MEAN CORPUSCULAR HGB CONC 33 G/DL (32-36); MEAN CORPUSCULAR VOLUME 88 FL (80-99); MEAN PLATELET VOLUME 9.8 FL (7.4-10.4); MONOCYTES # (AUTO) 0.6 X 10^3 (0.0-1.0); MONOCYTES % (AUTO) 7 % (0-12); NEUTROPHILS # (AUTO) 5.6 X 10^3 (1.8-7.8); NEUTROPHILS % (AUTO) 71 % (42-75); PLATELET COUNT 270 10^3/uL (130-400)
--- NOTE | 2019-06-11 19:17 | ED Psychosocial ---
General Stated Complaint: PSYCH EVAL Source: patient (SPEECH ERRATIC, AND IS LIMITED HISTORIAN), EMS History of Present Illness Date Seen by Provider: Jun 11, 2019 Time Seen by Provider: 18:53 Initial Comments PT ARRIVES VIA EMS WITH [place] [employer] PT AMBULATES INTO ER ON HIS OWN USING A CANE, WITHOUT ANY DIFFICULTY PER EMS, PT WAS ON A BUS, AND THEY WERE CONTACTED BY A FELL CUTTER, FOR PT "FREAKING OUT" PT STATES HE HAS BEEN HOMELESS FOR 4 YEARS, AND STATES HE WAS ON BUS FROM [place] AND ON HIS WAY TO [place] STATES "BECAUSE I ONLY HAD $60 AND THEY SAID THEY HAVE A GOOD PLACE THERE ( [place] ) WHERE I CAN GET SOME HELP" PT STATES HE HAS BEEN IN A HOSPITAL IN [place] RECENTLY--NOT SURE HOW LONG AGO--THEN STATES HE THINKS IT WAS A MONTH AGO. STATES "BUT THEY CAN ONLY KEEP ME FOR 5 DAYS" . STATES IT WAS FOR THIS SAME PROBLEM. PT STATES "I THINK I HAVE A PHOBIA" "I'M AFRAID OF PEOPLE" " I'M AFRAID THEY'RE GOING TO HARM ME" "I'M AFRAID OF EVERYTHING" --DOES NOT REPORT THAT ANYONE IN PARTICULAR IS TRYING TO HARM HIM--"JUST AFRAID OF EVERYONE" WHEN ASKED IF HE HAS EATEN TODAY, HE STATES "NO" AND "I'M AFRAID THEY WILL PUT SOMETHING IN MY FOOD" BUT CANNOT STATE EXACTLY WHAT HE THINKS SOMEONE WILL PUT IN HIS FOOD. YET, PT IS WANTING SOMETHING TO EAT AND DRINK SOON HE ARRIVES PT WITH EXTENSIVE DRUG ABUSE HISTORY-MAINLY METH--STATES HE "TOOK A HIT OF METH ABOUT A WEEK AGO, JUST TO GET CALMED DOWN" HAS EXTENSIVE HISTORY OF IV METH USE, WELL PT STATES HE HAS MULTIPLE PSYCH DIAGNOSES, INCLUDING PARANOID SCHIZOPHRENIA, PTSD, DEPRESSION, ANXIETY. STATES HE HAS HAD SUICIDE ATTEMPTS IN THE PAST BY OVERDOSING. DENIES ANY RECENT ATTEMPT OR SUICIDAL THOUGHTS AT THIS TIME. PT DOES NOT OFFER THIS INFORMATION, BUT IS NOTED THAT HE WAS IN [facility] LAST PM FOR SAME, AND SIGNED OUT AMA WAS REPORTED AT THAT TIME THAT HE WAS IN [place] < 24 HOURS PRIOR, AND HAD REPORTED THAT HE WAS ON HIS WAY TO [place], [place] TO FAMILY THERE. Allergies and Home Medications Allergies Coded Allergies: No Known Drug Allergies (Unverified , 06/10/19) Patient Home Medication List Home Medication List Reviewed: Yes Review of Systems Constitutional: no symptoms reported Respiratory: no symptoms reported Cardiovascular: no symptoms reported Gastrointestinal: no symptoms reported Genitourinary: no symptoms reported Musculoskeletal: no symptoms reported Skin: no symptoms reported Psychiatric/Neurological: See HPI, Anxiety Past Rllotyb-Zzmgfh-Kljgyk Hx Patient Social History Alcohol Use: Past History Recreational Drug Use: Yes (+ IV METH USE, ALSO SNORTS IT/SMOKES IT. THC USE) Drug of Choice: +IV METH USE, ALSO SNORTS AND SMOKES IT, THC USE Smoking Status: Current Everyday Smoker (< 1 PPD) Type Used: Cigarettes 2nd Hand Smoke Exposure: No Recent Foreign Travel: No Contact w/Someone Who Travel: No Recent Hopitalizations: No Seasonal Allergies Seasonal Allergies: No Past Medical History Surgeries: Yes (LEFT ANKLE FX/ORIF) Appendectomy, Orthopedic Respiratory: No (Poor historian) Cardiac: No (Poor historian) Neurological: No (Poor historian) Genitourinary: No (Poor historian) Gastrointestinal: No (Poor historian) Musculoskeletal: Yes (LEFT ANKLE FX/ORIF--STATES IS WHY HE USES A CANE) Fractures Endocrine: No (Poor historian) HEENT: No (Poor historian) Cancer: No (Poor historian) Psychosocial: Yes Anxiety, PTSD, Bipolar, Schizophrenia, Depression Integumentary: No (Poor historian) Blood Disorders: No (Poor historian) Physical Exam Vital Signs - First Documented 06/11/19 18:54 Temp 99.0 Pulse 86 Resp 20 B/P (MAP) 129/100 (110) Pulse Ox 98 O2 Delivery Room Air Capillary Refill : Height, Weight, BMI Height: 5'8.00" Weight: 150lbs. oz. 68.866003fy; BMI Method:Stated General Appearance: no apparent distress, thin, other (ANXIOUS, SPEECH RAPID AND SOMEWHAT ERRATIC. CONSTANT MOVEMENTS OF MOUTH AND BODY. PT WITH MULTIPLE AREAS OF OLD ADHESIVE FROM PRIOR TAPE/MONITORING DEVICES, ETC. ON CHEST/ ABDOMEN/ARMS. PT STATES HE IS "AFRAID TO TAKE A BATH" ) HEENT: other (POOR DENTITION) Neck: normal inspection Respiratory: normal breath sounds, no respiratory distress, no accessory muscle use Cardiovascular: regular rate, rhythm, no edema, no JVD, no murmur Gastrointestinal: non tender, soft Extremities: normal inspection, normal capillary refill Neurologic/Psychiatric: control clerk repairs II-XII nml as tested, no motor/sensory deficits, alert Appearance/Memory: disheveled, impaired insight Behavior/Eye Contact: cooperative, increased rate of speech Thoughts/Hallucinations: no apparent hallucination, paranoid, phobic Skin: normal color, warm/dry Progress/Results/Core Measures Results/Orders Lab Results Laboratory Tests Test 06/11/19 19:01 06/11/19 21:00 Range/Units White Blood Count 8.0 4.3-11.0 10^3/uL Red Blood Count 4.54 4.35-5.85 10^6/uL Hemoglobin 13.1 L 13.3-17.7 G/DL Hematocrit 40 40-54 % Mean Corpuscular Volume 88 80-99 FL Mean Corpuscular Hemoglobin 29 25-34 PG Mean Corpuscular Hemoglobin Concent 33 32-36 G/DL Red Cell Distribution Width 16.0 H 10.0-14.5 % Platelet Count 270 130-400 10^3/uL Mean Platelet Volume 9.8 7.4-10.4 FL Neutrophils (%) (Auto) 71 42-75 % Lymphocytes (%) (Auto) 19 12-44 % Monocytes (%) (Auto) 7 0-12 % Eosinophils (%) (Auto) 3 0-10 % Basophils (%) (Auto) 0 0-10 % Neutrophils # (Auto) 5.6 1.8-7.8 X 10^3 Lymphocytes # (Auto) 1.5 1.0-4.0 X 10^3 Monocytes # (Auto) 0.6 0.0-1.0 X 10^3 Eosinophils # (Auto) 0.3 0.0-0.3 10^3/uL Basophils # (Auto) 0.0 0.0-0.1 10^3/uL Prothrombin Time 13.3 12.2-14.7 SEC INR Comment 1.0 0.8-1.4 Activated Partial Thromboplast Time 30 24-35 SEC Sodium Level 140 135-145 MMOL/L Potassium Level 3.2 L 3.6-5.0 MMOL/L Chloride Level 104 98-107 MMOL/L Carbon Dioxide Level 25 21-32 MMOL/L Anion Gap 11 5-14 MMOL/L Blood Urea Nitrogen 7 7-18 MG/DL Creatinine 1.12 0.60-1.30 MG/DL Estimat Glomerular Filtration Rate > 60 BUN/Creatinine Ratio 6 Glucose Level 81 70-105 MG/DL Calcium Level 9.2 8.5-10.1 MG/DL Corrected Calcium 9.2 8.5-10.1 MG/DL Magnesium Level 1.7 L 1.8-2.4 MG/DL Total Bilirubin 0.3 0.1-1.0 MG/DL Aspartate Amino Transf (AST/SGOT) 131 H 5-34 U/L Alanine Aminotransferase (ALT/SGPT) 234 H 0-55 U/L Alkaline Phosphatase 127 40-136 U/L Total Protein 7.0 6.4-8.2 GM/DL Albumin 4.0 3.2-4.5 GM/DL TSH [place] Testing 0.70 0.35-4.94 UIU/ML Salicylates Level < 5.0 L 5.0-20.0 MG/DL Acetaminophen Level < 10 L 10-30 UG/ML Serum Alcohol < 10 <10 MG/DL Urine Color YELLOW Urine Clarity CLEAR Urine pH 7 5-9 Urine Specific [place] 1.005 L 1.016-1.022 Urine Protein NEGATIVE NEGATIVE Urine Glucose (UA) NEGATIVE NEGATIVE Urine Ketones NEGATIVE NEGATIVE Urine Nitrite NEGATIVE NEGATIVE Urine Bilirubin NEGATIVE NEGATIVE Urine Urobilinogen NORMAL NORMAL MG/DL Urine Leukocyte Esterase NEGATIVE NEGATIVE Urine RBC (Auto) NEGATIVE NEGATIVE Urine RBC NONE /HPF Urine WBC NONE /HPF Urine Squamous Epithelial Cells RARE /HPF Urine Crystals NONE /LPF Urine Bacteria TRACE /HPF Urine Casts NONE /LPF Urine Mucus NEGATIVE /LPF Urine Culture Indicated NO Urine Opiates Screen NEGATIVE NEGATIVE Urine Oxycodone Screen NEGATIVE NEGATIVE Urine Methadone Screen NEGATIVE NEGATIVE Urine Propoxyphene Screen NEGATIVE NEGATIVE Urine Barbiturates Screen NEGATIVE NEGATIVE Ur Tricyclic Antidepressants Screen NEGATIVE NEGATIVE Urine Phencyclidine Screen NEGATIVE NEGATIVE Urine Amphetamines Screen POSITIVE H NEGATIVE Urine Methamphetamines Screen POSITIVE H NEGATIVE Urine Benzodiazepines Screen NEGATIVE NEGATIVE Urine Cocaine Screen NEGATIVE NEGATIVE Urine Cannabinoids Screen NEGATIVE NEGATIVE My Orders Orders - ANA RED DO Ed Iv/Invasive Line Start (06/11/19 18:56) Ekg Tracing (06/11/19 18:56) Monitor-Rhythm Ecg Trace Only (06/11/19 18:56) Acetaminophen (06/11/19 18:56) Alcohol (06/11/19 18:56) Cbc With Automated Diff (06/11/19 18:56) Comprehensive Metabolic Panel (06/11/19 18:56) Drug Screen Stat (Urine) (06/11/19 18:56) Magnesium (06/11/19 18:56) Protime With Inr (06/11/19 18:56) Partial Thromboplastin Time (06/11/19 18:56) Thyroid Analyzer (06/11/19 18:56) Ua Culture If Indicated (06/11/19 18:56) Ed Iv/Invasive Line Start (06/11/19 19:02) Lactated Ringers (Lr 1000 Ml Iv Solution (06/11/19 19:02) Olanzapine Orally Dissolve Tab (Zyprexa (06/11/19 19:15) Salicylate (06/11/19 20:13) Ed Iv/Invasive Line Start (06/11/19 20:25) Lactated Ringers (Lr 1000 Ml Iv Solution (06/11/19 20:25) Potassium Chloride (Tablet) (Klor Con Ta (06/11/19 21:15) Magnesium Oxide Tablet (Mag Ox Tablet) (06/11/19 21:15) Medications Given in ED Current Medications Medications Dose Ordered Sig/Wilber Route Start Time Stop Time Status Last Admin Dose Admin Lactated Ringer's 1,000 ml @ 0 mls/hr Q0M ONCE IV 06/11/19 19:02 06/11/19 19:03 DC 06/11/19 19:27 1,000 MLS/HR Lactated Ringer's 1,000 ml @ 0 mls/hr Q0M ONCE IV 06/11/19 20:25 06/11/19 20:27 DC 06/11/19 21:31 0 MLS/HR Magnesium Oxide 1,200 mg ONCE ONCE PO 06/11/19 21:15 06/11/19 21:16 DC 06/11/19 21:14 1,200 MG Olanzapine 5 mg ONCE ONCE PO 06/11/19 19:15 06/11/19 19:16 DC 06/11/19 19:27 5 MG Potassium Chloride 20 meq ONCE ONCE PO 06/11/19 21:15 06/11/19 21:16 DC 06/11/19 21:13 20 MEQ Vital Signs/I&O 06/11/19 06/11/19 18:54 22:33 Temp 99.0 99.0 Pulse 86 80 Resp 20 17 B/P (MAP) 129/100 (110) 121/80 (94) Pulse Ox 98 98 O2 Delivery Room Air Room Air 06/12/19 00:00 Intake Total 2000 ml Balance 2000 ml Progress Progress Note : Progress Note GIVEN ZYPREXA ON ARRIVAL, PT CALMED AND RESTED QUIETLY FOR REMAINDER OF ER STAY PT DID NOT VOICE ANY SUICIDAL OR HOMICIDAL THOUGHTS AT ANY TIME DURING ER STAY PT ADVISED THAT THERE WERE NO HOMELESS SHELTERS HERE IN [place], BUT THERE WAS A SENIOR CARE IN [place]. PT ADVISED OF NEED FOR FOLLOW UP ON ELEVATED LIVER ENZYMES [place] [employer] OPERATOR LEFT WHEN PT ARRIVED IN ER. SAME OFFICER RETURNED SHORTLY AFTER PT HAD BEEN DISMISSED, AND STATES THAT PT HAS WARRANTS FOR HIS ARREST-- WITH NO PHELPS-- FOR METHAMPHETAMINE POSSESSION, OTHER CHARGES. Initial ECG Impression Date: Jun 11, 2019 Initial ECG Impression Time: 19:04 Initial ECG Rate: 92 Initial ECG Rhythm: Normal Sinus Initial ECG Impression: Nonspecific Changes Initial ECG Comparisson: No Previous ECG Available Departure Impression Primary Impression: Paranoia Additional Impressions: Anxiety Illicit drug use Methamphetamine use Hypokalemia Hypomagnesemia Elevated liver enzymes IV drug user Disposition: 01 HOME, SELF-CARE Condition: Stable Departure-Patient Inst. Referrals: NO,LOCAL PHYSICIAN (PCP/Family) Primary Care Physician Patient Instructions: Anxiety, Adult (DC), Drug Abuse and Drug Addiction (DC), Schizophrenia (DC) Add. Discharge Instructions: FOLLOW UP WITH OF CHOICE FOR FURTHER CARE ANA RED DO Jun 11, 2019 19:17
[2019-06-11 19:27] LABS: PROTHROMBIN TIME PATIENT 13.3 SEC (12.2-14.7)
[2019-06-11 20:30] LABS: ALANINE AMINOTRANSFERASE 234 U/L (0-55); ALKALINE PHOSPHATASE 127 U/L (40-136); BILIRUBIN,TOTAL 0.3 MG/DL (0.1-1.0); BUN/CREATININE RATIO 6; CALCIUM 9.2 MG/DL (8.5-10.1); CARBON DIOXIDE 25 MMOL/L (21-32); CHLORIDE 104 MMOL/L (98-107); CREATININE SERUM 1.12 MG/DL (0.60-1.30); GFR ESTIMATED > 60; GLUCOSE 81 MG/DL (70-105); MAGNESIUM 1.7 MG/DL (1.8-2.4); POTASSIUM 3.2 MMOL/L (3.6-5.0); SODIUM 140 MMOL/L (135-145)
[2019-06-11 20:32] LABS: ACETAMINOPHEN < 10 UG/ML (10-30)
[2019-06-11 21:10] LABS: BILIRUBIN,URINE NEGATIVE (NEGATIVE); CLARITY,URINE CLEAR; COLOR,URINE YELLOW; GLUCOSE, URINE (UA) NEGATIVE (NEGATIVE); KETONES,URINE NEGATIVE (NEGATIVE); LEUKOCYTE ESTERASE ,URINE NEGATIVE (NEGATIVE); NITRITE,URINE NEGATIVE (NEGATIVE); PH,URINE 7 (5-9); PROTEIN,URINE NEGATIVE (NEGATIVE); UROBILINOGEN,URINE NORMAL (NORMAL)
[2019-06-11] MEDS ORDERED: MAGNESIUM OXIDE (MAG-OX)400 MG TAB PO ONE (21:15)
[2019-06-11] MEDS ORDERED: KCL 10 MEQ TAB (MICRO K) PO ONE (21:15)
--- NOTE | 2019-06-11 21:16 | NUR ---
pt here by self. pt sleeping awoke to alert gcs 15 then back to sleep. no acute sighns of dyspnea noted. bp machine is 120/72 ausc hr 88 reg ausc resp 20 normal recheck temp 99.5 though pt has head covered up in blanket. p ox r/a is 98. tele shows sr 92. 250 left in bolus pt had his arm bent at iv site.
[2019-06-11 21:24] LABS: AMPHETAMINE SCREEN, URINE POSITIVE (NEGATIVE); BACTERIA,URINE TRACE /HPF; BARBITURATE SCREEN URINE NEGATIVE (NEGATIVE); BENZODIAZEPINES SCREEN URINE NEGATIVE (NEGATIVE); CANNABINOID SCREEN, URINE NEGATIVE (NEGATIVE); COCAINE SCREEN URINE NEGATIVE (NEGATIVE); METHADONE STAT NEGATIVE (NEGATIVE); METHAMPHETAMINE SCREEN URINE S POSITIVE (NEGATIVE); OPIATE SCREEN URINE NEGATIVE (NEGATIVE); OXYCODONE STAT NEGATIVE (NEGATIVE); PROPOXYPHENE STAT NEGATIVE (NEGATIVE); SQUAMOUS EPITHELIAL CELL,UR RARE /HPF; TRICYCLIC ANTIDEPRESSANTS SCRE NEGATIVE (NEGATIVE)
--- NOTE | 2019-06-11 21:28 | NUR ---
i clarified with . wants 2 liter of a bolus. pt just has 1 per pt nurse. i will start 2nd and put it on a pump.
--- NOTE | 2019-06-11 21:36 | NUR ---
1st liter completed and 2nd started.
--- NOTE | 2019-06-11 22:04 | NUR ---
relates short time a go pt to be d/cd after bolus. if need be we can call security to escort pt off property when d/cd.
[2019-06-11 22:33] VITALS: BP 121/80
== END 2019-06-11 22:33 | disposition home or self-care (01) ==
LOC: EDUNIT# 18:54 → ER 18:56
DX: F22 Delusional disorders (principal); F41.9 Anxiety disorder, unspecified; E83.42 Hypomagnesemia; E87.6 Hypokalemia; R74.8 Abnormal levels of other serum enzymes; F43.10 Post-traumatic stress disorder, unspecified; F31.9 Bipolar disorder, unspecified; F20.9 Schizophrenia, unspecified; F19.90 Other psychoactive substance use, unspecified, uncomplicated; F15.10 Other stimulant abuse, uncomplicated; F17.210 Nicotine dependence, cigarettes, uncomplicated; Z90.49 Acquired absence of other specified parts of digestive tract; Z91.5 Personal history of self-harm
CPT/HCPCS: 36415; 80053; 80306; 80320; 80329; 81000; 83735; 84443; 85025; 85610; 85730; 93005; 93041; 96360

== ENCOUNTER 2019-06-12 08:25 | Emergency (ER) | payer MEDICARE ==
[~2019-06-12] VITALS: Ht 175.3 cm; Wt 68.0 kg
--- OUTSIDE RECORDS SUMMARY | 2019-06-12 08:33 | XMS REPORT | Continuity of Care Document ---
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 other stationary object, initial encounter</PV2.3.2><PV2.3.2>Nicotine dependence, cigarettes, uncomplicated</PV2.3.2> [id number] 10/16/2017 13:58:00 10/18/2017 12:37:45 DIS Inpatient DESI ZAVALA <PV2.3.2>Bipolar disorder, unspecified</PV2.3.2><PV2.3.2>UNSPECIFIED BIPOLAR</PV2.3.2><PV2.3.2>Bipolar disorder, unspecified</PV2.3.2><PV2.3.2>Other stimulant dependence, uncomplicated</PV2.3.2><PV2.3.2>Suicidal ideations</PV2.3.2><PV2.3.2>Gastro- esophageal reflux disease without esophagitis</PV2.3.2><PV2.3.2>Nicotine depend ence, cigarettes, uncomplicated</PV2.3.2> [id number] 06/03/2015 04:44:00 06/03/2015 07:35:33 DIS Emergency GALINA MITCHELL [id number] 05/14/2015 21:25:00 05/15/2015 01:36:41 DIS Emergency GALINA MITCHELL [id number] 03/03/2019 03:55:00 Document Registration
--- NOTE | 2019-06-12 09:01 | NUR ---
Room cleared of all objects to prevent pt from harming self. Pt escorted to bathroom at this time to change into gown. Pt personal belongings in bag behind nurses desk.
--- NOTE | 2019-06-12 09:20 | ED Psychosocial ---
General Chief Complaint: Psych/Social Disorder Stated Complaint: PSYCH EVAL Source: patient Exam Limitations: no limitations History of Present Illness Date Seen by Provider: Jun 12, 2019 Time Seen by Provider: 09:14 Initial Comments This 49-year-old male presents with suicidal ideation. Patient was evaluated here in the emergency department yesterday and discharged. Patient following discharge yesterday has developed suicidal ideations. The patient has not harmed himself to this point. He has no specific plan. Allergies and Home Medications Allergies Coded Allergies: No Known Drug Allergies (Unverified , 06/10/19) Patient Home Medication List Home Medication List Reviewed: Yes Review of Systems Constitutional: No no symptoms reported EENTM: No no symptoms reported Respiratory: No no symptoms reported Cardiovascular: No no symptoms reported Gastrointestinal: No no symptoms reported Genitourinary: No no symptoms reported Musculoskeletal: No no symptoms reported Skin: No no symptoms reported Psychiatric/Neurological: See HPI Past Xbxovqz-Bryjkm-Mrczqc Hx Past Med/Social Hx: Reviewed Nursing Past Med/Soc Hx Patient Social History Drug of Choice: +IV METH USE, ALSO SNORTS AND SMOKES IT, THC USE Type Used: Cigars, Cigarettes 2nd Hand Smoke Exposure: No Recent Hopitalizations: No Seasonal Allergies Seasonal Allergies: No Past Medical History Surgeries: Yes (LEFT ANKLE FX/ORIF) Appendectomy, Orthopedic Respiratory: No (Poor historian) Cardiac: No (Poor historian) Neurological: No Genitourinary: No Gastrointestinal: No Musculoskeletal: Yes (LEFT ANKLE FX/ORIF--STATES IS WHY HE USES A CANE) Fractures Endocrine: No HEENT: No (Poor historian) Cancer: No Psychosocial: Yes Anxiety, PTSD, Bipolar, Schizophrenia, Depression Integumentary: No Blood Disorders: No Physical Exam Vital Signs - First Documented 06/12/19 08:53 Temp 97.8 Pulse 87 Resp 20 B/P (MAP) 143/94 (110) Pulse Ox 100 O2 Delivery Room Air Capillary Refill : Height, Weight, BMI Height: 5'9.00" Weight: 130lbs. oz. 58.953550oy; BMI Method:Stated General Appearance: WD/WN, no apparent distress HEENT: normal ENT inspection Neck: non-tender, full range of motion Respiratory: chest non-tender, lungs clear Cardiovascular: normal peripheral pulses, regular rate, rhythm Gastrointestinal: normal bowel sounds, non tender, soft Extremities: normal range of motion, non-tender, normal inspection Neurologic/Psychiatric: no motor/sensory deficits, alert, normal mood/affect Appearance/Memory: impaired insight Thoughts/Hallucinations: auditory hallucinations, visual hallucinations Skin: normal color, warm/dry Progress/Results/Core Measures Results/Orders Lab Results Laboratory Tests Test 06/12/19 09:10 06/12/19 10:00 Range/Units White Blood Count 6.3 4.3-11.0 10^3/uL Red Blood Count 4.73 4.35-5.85 10^6/uL Hemoglobin 13.6 13.3-17.7 G/DL Hematocrit 42 40-54 % Mean Corpuscular Volume 89 80-99 FL Mean Corpuscular Hemoglobin 29 25-34 PG Mean Corpuscular Hemoglobin Concent 32 32-36 G/DL Red Cell Distribution Width 16.3 H 10.0-14.5 % Platelet Count 269 130-400 10^3/uL Mean Platelet Volume 10.4 7.4-10.4 FL Neutrophils (%) (Auto) 66 42-75 % Lymphocytes (%) (Auto) 22 12-44 % Monocytes (%) (Auto) 9 0-12 % Eosinophils (%) (Auto) 3 0-10 % Basophils (%) (Auto) 1 0-10 % Neutrophils # (Auto) 4.2 1.8-7.8 X 10^3 Lymphocytes # (Auto) 1.4 1.0-4.0 X 10^3 Monocytes # (Auto) 0.6 0.0-1.0 X 10^3 Eosinophils # (Auto) 0.2 0.0-0.3 10^3/uL Basophils # (Auto) 0.0 0.0-0.1 10^3/uL Sodium Level 141 135-145 MMOL/L Potassium Level 3.6 3.6-5.0 MMOL/L Chloride Level 106 98-107 MMOL/L Carbon Dioxide Level 24 21-32 MMOL/L Anion Gap 11 5-14 MMOL/L Blood Urea Nitrogen 7 7-18 MG/DL Creatinine 0.84 0.60-1.30 MG/DL Estimat Glomerular Filtration Rate > 60 BUN/Creatinine Ratio 8 Glucose Level 95 70-105 MG/DL Calcium Level 9.0 8.5-10.1 MG/DL Corrected Calcium 9.2 8.5-10.1 MG/DL Total Bilirubin 0.3 0.1-1.0 MG/DL Aspartate Amino Transf (AST/SGOT) 124 H 5-34 U/L Alanine Aminotransferase (ALT/SGPT) 234 H 0-55 U/L Alkaline Phosphatase 124 40-136 U/L Total Protein 6.8 6.4-8.2 GM/DL Albumin 3.8 3.2-4.5 GM/DL Salicylates Level < 5.0 L 5.0-20.0 MG/DL Acetaminophen Level < 10 L 10-30 UG/ML Serum Alcohol < 10 <10 MG/DL Urine Color YELLOW Urine Clarity CLEAR Urine pH 6.5 5-9 Urine Specific [place] 1.010 L 1.016-1.022 Urine Protein NEGATIVE NEGATIVE Urine Glucose (UA) NEGATIVE NEGATIVE Urine Ketones NEGATIVE NEGATIVE Urine Nitrite NEGATIVE NEGATIVE Urine Bilirubin NEGATIVE NEGATIVE Urine Urobilinogen NORMAL NORMAL MG/DL Urine Leukocyte Esterase NEGATIVE NEGATIVE Urine RBC (Auto) NEGATIVE NEGATIVE Urine RBC NONE /HPF Urine WBC NONE /HPF Urine Squamous Epithelial Cells RARE /HPF Urine Crystals NONE /LPF Urine Bacteria NEGATIVE /HPF Urine Casts NONE /LPF Urine Mucus NEGATIVE /LPF Urine Culture Indicated NO Urine Opiates Screen NEGATIVE NEGATIVE Urine Oxycodone Screen NEGATIVE NEGATIVE Urine Methadone Screen NEGATIVE NEGATIVE Urine Propoxyphene Screen NEGATIVE NEGATIVE Urine Barbiturates Screen NEGATIVE NEGATIVE Ur Tricyclic Antidepressants Screen NEGATIVE NEGATIVE Urine Phencyclidine Screen NEGATIVE NEGATIVE Urine Amphetamines Screen POSITIVE H NEGATIVE Urine Methamphetamines Screen POSITIVE H NEGATIVE Urine Benzodiazepines Screen NEGATIVE NEGATIVE Urine Cocaine Screen NEGATIVE NEGATIVE Urine Cannabinoids Screen NEGATIVE NEGATIVE My Orders Orders - KATIE HAMMOND MD Ua Culture If Indicated (06/12/19 09:12) Cbc With Automated Diff (06/12/19 09:12) Comprehensive Metabolic Panel (06/12/19 09:12) Alcohol (06/12/19 09:12) Drug Screen Stat (Urine) (06/12/19 09:12) Acetaminophen (06/12/19 09:12) Salicylate (06/12/19 09:12) Ekg Tracing (06/12/19 09:12) Ed Iv/Invasive Line Start (06/12/19 09:12) Monitor-Rhythm Ecg Trace Only (06/12/19 09:12) Bh Status Checks/Observation Q15M (06/12/19 09:12) Ed Iv/Invasive Line Start (06/12/19 09:12) General/Regular (06/12/19 Lunch) Vital Signs/I&O 06/12/19 08:53 Temp 97.8 Pulse 87 Resp 20 B/P (MAP) 143/94 (110) Pulse Ox 100 O2 Delivery Room Air Progress Progress Note : Time: 09:41 Progress Note Patient relates he is having auditory and visual hallucinations. He states that he has suicidal ideations. He states that he is depressed. [facility] has been called to assess the patient. Appropriate screening laboratory evaluation has been initiated. 315 p.m. the patient's laboratory evaluation was positive for amphetamines. In the process of transferring information to a psych facility to facilitate his admission there. Patient was accepted at [facility]. Arrangements are in process to transport the patient to [place]. Departure Impression Primary Impression: Suicidal ideation Disposition: 65 XFER TO PSYCH HOSP/UNIT Condition: Unchanged Transfer Time Spoke to Accepting Phy: 17:26 Transfer Progress Notes Patient was accepted by [facility] psych facility in [place]. Dr. Anderson is the accepting physician. Transfer Time: 17:27 Transfer Facility: [facility] in [place]. Method of Transfer: Private Vehicle Departure-Patient Inst. Referrals: NO,LOCAL PHYSICIAN (PCP/Family) Primary Care Physician KATIE HAMMOND MD Jun 12, 2019 09:20
[2019-06-12 09:28] LABS: BASOPHILS % (AUTO) 1 % (0-10); EOSINOPHILS # (AUTO) 0.2 10^3/uL (0.0-0.3); EOSINOPHILS % (AUTO) 3 % (0-10); HEMATOCRIT 42 % (40-54); HEMOGLOBIN 13.6 G/DL (13.3-17.7); LYMPHOCYTES # (AUTO) 1.4 X 10^3 (1.0-4.0); LYMPHOCYTES % (AUTO) 22 % (12-44); MEAN CORPUSCULAR HEMOGLOBIN 29 PG (25-34); MEAN CORPUSCULAR HGB CONC 32 G/DL (32-36); MEAN CORPUSCULAR VOLUME 89 FL (80-99); MEAN PLATELET VOLUME 10.4 FL (7.4-10.4); MONOCYTES # (AUTO) 0.6 X 10^3 (0.0-1.0); MONOCYTES % (AUTO) 9 % (0-12); NEUTROPHILS # (AUTO) 4.2 X 10^3 (1.8-7.8); NEUTROPHILS % (AUTO) 66 % (42-75); PLATELET COUNT 269 10^3/uL (130-400); RED CELL DISTRIBUTION WIDTH 16.3 % (10.0-14.5); WHITE BLOOD COUNT 6.3 10^3/uL (4.3-11.0)
[2019-06-12 09:47] LABS: ALANINE AMINOTRANSFERASE 234 U/L (0-55); ALBUMIN 3.8 GM/DL (3.2-4.5); ALKALINE PHOSPHATASE 124 U/L (40-136); BILIRUBIN,TOTAL 0.3 MG/DL (0.1-1.0); BUN/CREATININE RATIO 8; CARBON DIOXIDE 24 MMOL/L (21-32); CHLORIDE 106 MMOL/L (98-107); CREATININE SERUM 0.84 MG/DL (0.60-1.30); GFR ESTIMATED > 60; GLUCOSE 95 MG/DL (70-105); POTASSIUM 3.6 MMOL/L (3.6-5.0); SALICYLATE < 5.0 MG/DL (5.0-20.0); SODIUM 141 MMOL/L (135-145); TOTAL PROTEIN 6.8 GM/DL (6.4-8.2)
[2019-06-12 09:52] LABS: ACETAMINOPHEN < 10 UG/ML (10-30)
--- NOTE | 2019-06-12 10:01 | NUR ---
[facility] called
[2019-06-12 10:06] LABS: BILIRUBIN,URINE NEGATIVE (NEGATIVE); CLARITY,URINE CLEAR; COLOR,URINE YELLOW; GLUCOSE, URINE (UA) NEGATIVE (NEGATIVE); KETONES,URINE NEGATIVE (NEGATIVE); LEUKOCYTE ESTERASE ,URINE NEGATIVE (NEGATIVE); NITRITE,URINE NEGATIVE (NEGATIVE); PH,URINE 6.5 (5-9); PROTEIN,URINE NEGATIVE (NEGATIVE); UROBILINOGEN,URINE NORMAL (NORMAL)
[2019-06-12 10:13] LABS: BACTERIA,URINE NEGATIVE /HPF; SQUAMOUS EPITHELIAL CELL,UR RARE /HPF
--- NOTE | 2019-06-12 10:14 | NUR ---
[facility] called back and said he is not required for a mental health screen if pt voluntarily wants to be admitted to an inpatient facility.
[2019-06-12 10:23] LABS: AMPHETAMINE SCREEN, URINE POSITIVE (NEGATIVE); BENZODIAZEPINES SCREEN URINE NEGATIVE (NEGATIVE); COCAINE SCREEN URINE NEGATIVE (NEGATIVE); METHAMPHETAMINE SCREEN URINE S POSITIVE (NEGATIVE)
[2019-06-12 10:24] LABS: BARBITURATE SCREEN URINE NEGATIVE (NEGATIVE); CANNABINOID SCREEN, URINE NEGATIVE (NEGATIVE); METHADONE STAT NEGATIVE (NEGATIVE); OPIATE SCREEN URINE NEGATIVE (NEGATIVE); OXYCODONE STAT NEGATIVE (NEGATIVE); PROPOXYPHENE STAT NEGATIVE (NEGATIVE); TRICYCLIC ANTIDEPRESSANTS SCRE NEGATIVE (NEGATIVE)
--- NOTE | 2019-06-12 12:15 | NUR ---
lunch ordered for pt at this time.
--- NOTE | 2019-06-12 13:10 | NUR ---
lunch brought to pt at this time. Pt has been sleeping up to this time.
--- NOTE | 2019-06-12 13:18 | NUR ---
[facility] called and information is faxed.
--- NOTE | 2019-06-12 14:43 | NUR ---
CALLED [facility] REGARDING A BED FOR PATIENT. [facility] ASKED TO SPEAK WITH NURSE FOR A BRIEF REPORT AND AFTER THAT PATIENT REPORTS WERE FAXED TO [facility].
--- NOTE | 2019-06-12 15:35 | NUR ---
CALLED BOTH [facility] AND [facility] AND NEITHER ONE HAS BEGAN REVIEWING PATIENTS DOCUMENTS.
--- NOTE | 2019-06-12 15:41 | NUR ---
Still waiting on [facility] and [facility] to review pt info. [facility] called- both facilities do not have any beds available at this time.
--- NOTE | 2019-06-12 15:43 | NUR ---
[facility] CALLED AT [phone], NO BED AVAILABLE
--- NOTE | 2019-06-12 15:46 | NUR ---
[facility] [place] CALLED, NO BEDS AVAILABLE.
--- NOTE | 2019-06-12 15:49 | NUR ---
[facility] CALLED, THEY HAVE A BED AND ARE GOING TO REVIEW PATIENTS DOCUMENTS AND DECIDE WHETHER OR NOT THEY'RE GOING TO ACCEPT PATIENT.
--- NOTE | 2019-06-12 16:07 | NUR ---
Psych transport called at this time while waiting to hear back on a bed.
--- NOTE | 2019-06-12 16:19 | NUR ---
Jensen, psych transport, returned call. [facility] is availble to transport pt to preferably [place] or [place] and preferably between 1830 and 1900.
--- NOTE | 2019-06-12 17:04 | NUR ---
Message left for Carlene, psych transport.
--- NOTE | 2019-06-12 17:19 | NUR ---
[facility] accepted pt. Waiting on psych transport to call back with [facility] to facility.
--- NOTE | 2019-06-12 17:31 | NUR ---
Report called to TOMMIE Jamison at [facility]
--- NOTE | 2019-06-12 19:00 | NUR ---
Recieved pt report from TOMMIE Callahan to assume care of pt @ this time. Pt resting in room on ED cart with respirations even and non labored. No distress noted. Will continue to monitor.
--- NOTE | 2019-06-12 20:00 | NUR ---
Psych transport Carlene Norton & Grace Gonzalez to ED for pt transfer to [place]. After pt report given to Carlene, Carlene reports she feels as though she is unable to transport pt d/t moral obligations that have arose. Dr. Quevedo notified.
--- NOTE | 2019-06-12 21:34 | NUR ---
[facility] mental health screener, Caren Fuentes, to ED for mental health evaluation. Pt report given to screener prior to visiting with pt.
[2019-06-12 22:50] VITALS: BP 137/94
--- NOTE | 2019-06-12 22:50 | NUR ---
Parvez from [facility] here to transport pt to [facility] ([place], [place]) after mental health screening clearance by Caren Smith. Belongings returned to pt. Discharge instructions reviewed with pt whom verbalized understanding. A&OX4. Pt ambulated out of ED care w/o difficutly.
--- NOTE | 2019-06-13 01:05 | NUR ---
Kaila Sandoval, TOMMIE from [facility] contacted this RN in regards to pt. SV request screening clearance documentation preformed by aCren Fuentes. ( )
--- NOTE | 2019-06-13 02:20 | NUR ---
Contacted Lizbeth from [facility] in an attempt to contact Caren Fuentes for pt screening notes per request from Jan Horn.
== END 2019-06-12 22:50 | disposition home or self-care (01) ==
LOC: EDUNIT# 08:25 → ER 08:25
DX: R45.851 Suicidal ideations (principal); F41.9 Anxiety disorder, unspecified; F43.10 Post-traumatic stress disorder, unspecified; F31.9 Bipolar disorder, unspecified; F20.9 Schizophrenia, unspecified; Z90.49 Acquired absence of other specified parts of digestive tract
CPT/HCPCS: 36415; 80053; 80306; 80320; 80329; 81000; 85025; 93005